=== PATIENT | female | born 1990 | race African-American/Black ===

== ENCOUNTER 2017-11-25 12:03 | Inpatient (IN) | payer BC ==
[2017-11-25] MEDS ORDERED: Calcium Carbonate 500 MG Tab.Chew PO PRN (13:20)
[2017-11-25] MEDS ORDERED: Sodium Chloride 0.9% 10 ML Syringe FLUSH PRN (13:20)
[2017-11-25] MEDS ORDERED: Ondansetron 4 MG/2 ML SDV IVPUSH PRN (13:20)
[2017-11-25] MEDS ORDERED: Lidocaine 1% 50 ML MDV INJECT ONE (13:20)
[2017-11-25] MEDS ORDERED: Oxytocin/Lactated Ringers 10 UNIT/1,000 ML BAG IV SCH (13:30)
--- NOTE | 2017-11-25 14:15 | PCM.LDHP ---
L&D History of Present Illness - General Date of Service: 11/25/17 Admit Problem/Dx: Patient Status Order with Admit Dx/Problem 11/25/17 13:20 Patient Status [ADT] Routine Admission Diagnosis/Problem Admission Diagnosis/Problem Source of Information: Patient History Limitations: Reports: No Limitations - History of Present Illness Introduction:: 27 yo G1 at 39 weeks 6 days gestation present to labor and delivery with contractions for 17 hours (starting at 2100 on 11/24/17). No Leakage of fluid. No vaginal bleeding. she reports good movement. she has had regular care with Dr. Giulia Mcmullen, Dr. Mcmullen will also be assuming care of infant. has been complicated by recurrent small for dates measurements. she has had repeat ultrasound evaluation. Her most recent ultrasound was a BPP on measuring in 40th percentile range for size, normal MATIAS and 8/8 BPP. Growth on this ultrasound was consistent with previous ultrasounds through this . Routine labs were within normal limits. O pos GTT normal GBS negative Location, : Reports: Abdomen Severity: Moderate Improves with: Reports: None Worsens with: Reports: None Associated Symptoms: Denies: vaginal bleeding, vaginal fluid - Related Data Allergies/Adverse Reactions: Allergies Allergy/AdvReac Type Severity Reaction Status Date / Time No Known Allergies Allergy Verified 11/25/17 12:19 Past Medical History - Past Surgical History Head Surgeries/Procedures: Reports: None Social & Family History - Tobacco Use Smoking Status *Q: Never Smoker - Living Situation & Occupation Living situation: Reports: , Other ( currently in [place]) Occupation: Employed H&P Review of Systems - Review of Systems: Review Of Systems: See Below General: Reports: No Symptoms HEENT: Reports: No Symptoms Pulmonary: Reports: No Symptoms Cardiovascular: Reports: No Symptoms Gastrointestinal: Reports: No Symptoms Genitourinary: Reports: No Symptoms Musculoskeletal: Reports: No Symptoms Skin: Reports: No Symptoms Psychiatric: Reports: No Symptoms Neurological: Reports: No Symptoms Hematologic/Lymphatic: Reports: No Symptoms Immunologic: Reports: No Symptoms L&D Exam - Exam Exam: See Below - Vital Signs Weight: 90.31 kg - OB Specific Contraction Intensity: Strong Movement: Active Heart Tones: Present Heart Tones per Min: 135 Heart Rate (FHR) Variability: Moderate (6-25 bmp) Presentation: Vertex Estimated Weight: 3250 grams - Miles Score Miles Score Cervix Position: Midposition Miles Score Consistency: Soft Miles Score Effacement: >80% Miles Score Dilation: 3-4 cm Miles Score Infant's Station: -1 ,0 Miles Score Total: 10 - Exam General: Alert, Oriented Genitourinary: Normal external exam Extremities: No Pedal Edema Skin: Warm, Dry, Intact Psychiatric: Alert - Patient Data Lab Results Last 24 hrs: Laboratory Results - last 24 hr 11/25/17 Range/Units 13:40 WBC 5.96 (3.98-10.04) K/mm3 RBC 4.87 (3.98-5.22) M/mm3 Hgb 13.0 (11.2-15.7) gm/L Hct 39.2 (34.1-44.9) % MCV 80.5 (79.4-94.8) fl MCH 26.7 (25.6-32.2) pg MCHC 33.2 (32.2-35.5) g/dl RDW Std Deviation 48.0 H (36.4-46.3) fL Plt Count 289 (182-369) K/mm3 MPV 10.6 (9.4-12.3) fl Neut % (Auto) 62.0 (34.0-71.1) % Lymph % (Auto) 26.3 (19.3-51.7) % [place] % (Auto) 10.7 (4.7-12.5) % Eos % (Auto) 0.5 L (0.7-5.8) Baso % (Auto) 0.2 (0.1-1.2) % Neut # (Auto) 3.69 (1.56-6.13) K/mm3 Lymph # (Auto) 1.57 (1.18-3.74) K/mm3 [place] # (Auto) 0.64 H (0.24-0.36) K/mm3 Eos # (Auto) 0.03 L (0.04-0.36) K/mm3 Baso # (Auto) 0.01 (0.01-0.08) K/mm3 Result Diagrams: 11/25/17 13:40 Problem List Initiated/Reviewed/Updated: Yes Orders Last 24hrs: Active Orders 24 hr Category Date Time Status Patient Status [ADT] Routine ADT 11/25/17 13:20 Active Activity as Tolerated [RC] PFP Care 11/25/17 13:20 Active Communication Order [RC] ASDIRECTED Care 11/25/17 13:20 Active Heart Tones [RC] ASDIRECTED Care 11/25/17 13:20 Active Notify Provider [RC] PFP Care 11/25/17 13:20 Active Notify Provider [RC] PRN Care 11/25/17 13:20 Active Peripheral IV Care [RC] . DIRECTED Care 11/25/17 13:20 Active Pump Management, Intrathecal [RC] ASDIRECTED Care 11/25/17 13:21 Active Urinary Catheter Assessment [RC] ASDIRECTED Care 11/25/17 13:20 Active Vital Signs [RC] PER UNIT ROUTINE Care 11/25/17 13:20 Active Regular Diet [DIET] Diet 11/25/17 Lunch Active RAPID PLASMA REAGIN,RPR [CHEM] Routine Lab 11/25/17 13:40 Received TYPE AND SCREEN [BBK] Stat Lab 11/25/17 13:40 Received Calcium Carbonate [Tums] Med 11/25/17 13:20 Active 1,000 mg PO Q2H PRN Lactated Ringers [Ringers, Lactated] 1,000 ml Med 11/25/17 13:30 Active IV ASDIRECTED Ondansetron [Zofran] Med 11/25/17 13:20 Active 4 mg IVPUSH Q4H PRN Oxytocin/Lactated Ringers [Pitocin in LR 10 Units/1,000 Med 11/25/17 13:30 Active ML] 10 unit in 1,000 ml IV .CONTINUOUS Sodium Chloride 0.9% [Saline Flush] Med 11/25/17 13:20 Active 10 ml FLUSH ASDIRECTED PRN Electronic Heart Tones Ext w TOCO [WOMSER] Oth 11/25/17 13:20 Ordered Routine Electronic Heart Tones Internal [WOMSER] Per Unit Oth 11/25/17 13:20 Ordered Routine Peripheral IV Insertion Adult [OM.PC] Routine Oth 11/25/17 13:20 Ordered Resuscitation Status Routine Resus Stat 11/25/17 13:20 Ordered Medication Orders Calcium Carbonate/Glycine (Tums) 1,000 mg PO Q2H PRN PRN Reason: Indigestion Lactated Ringer's (Ringers, Lactated) 1,000 mls @ 100 mls/hr IV ASDIRECTED BRYANT Oxytocin/Lactated Ringer's (Pitocin In Lr 10 Units/1,000 Ml) 10 unit in 1,000 mls @ 100 mls/hr IV .CONTINUOUS BRYANT; Protocol Ondansetron HCl (Zofran) 4 mg IVPUSH Q4H PRN PRN Reason: Nausea/Vomiting Sodium Chloride (Saline Flush) 10 ml FLUSH ASDIRECTED PRN PRN Reason: Keep Vein Open Assessment/Plan Comment:: 27 yo G1 presents with contractions in 1st stage of labor. Plan: Expectant management. Pt does not desire epidural at this time. GBS negative-no antibiotics needed.
[2017-11-25] MEDS: Lactated Ringers 1,000 ML IV SCH ×2 (17:35→21:44)
--- NOTE | 2017-11-25 18:30 | PCM.PNLD ---
Labor Progress Note - VS & Meds Vital Signs: Last Vital Signs Temp 36.8 C 11/25/17 13:20 Pulse 68 11/25/17 13:20 Resp 16 11/25/17 13:20 BP 126/85 11/25/17 13:20 Pulse Ox Active Medications: Current Medications Calcium Carbonate/Glycine (Tums) 1,000 mg PO Q2H PRN PRN Reason: Indigestion Lactated Ringer's (Ringers, Lactated) 1,000 mls @ 100 mls/hr IV ASDIRECTED BRYANT Oxytocin/Lactated Ringer's (Pitocin In Lr 10 Units/1,000 Ml) 10 unit in 1,000 mls @ 100 mls/hr IV .CONTINUOUS BRYANT; Protocol Ondansetron HCl (Zofran) 4 mg IVPUSH Q4H PRN PRN Reason: Nausea/Vomiting Sodium Chloride (Saline Flush) 10 ml FLUSH ASDIRECTED PRN PRN Reason: Keep Vein Open Discontinued Medications Lidocaine HCl (Xylocaine 1%) 50 ml INJECT ONETIME ONE Stop: 11/25/17 13:21 - Uterine Contractions Uterine Monitoring Mode: External [place] Contraction Frequency (min): 3 to 5 Contraction Duration (sec): 60-120 Contraction Intensity: Moderate Uterine Resting Tone: Soft - Monitoring Monitor Mode: Spiral Electrode Heart Rate (FHR) Baseline: 130 Heart Rate (FHR) Variability: Moderate (6-25 bmp) Accelerations: Absent Decelerations: Prolonged (>2x10 min) Strip Review: Category II - Vaginal Exam Dilation (cm): 4 Effacement (Percent): 90 Station: 0 Cervical Position: Midposition Sterile Vaginal Exam Performed By: Giulia Mcmullen (AROM done at time of Scalp lead placement) - Labor Progress (Free Text) Labor Progress: Patient tolerating her contractions when I came to see her at about 1730. She was up on the birthing ball and FHR was reactive, moderate variability and only an occasional early decel noted. I had her move to the bed to examine her and cervix was 4 cm, 90%, Vertex with station -1 to 0. FHR decelerated shortly after my exam down to about 65 and we applied oxygen, started IV fluid bolus and rolled her to her left side. FHR was still low, so I placed an internal scalp lead and did an AROM and there was finally slow recovery to 90 and then 100-110. There was very little fluid that drained but there appeared to be some meconium. Finally after about 15 minutes, baseline was 110-120 and by 25 minutes after the deceleration, FHR was back to the previous baseline of 130 with moderate variability. We did have her try standing and then sit back on the birthing ball,and baby tolerated that. Contractions seems to be getting stronger now again and about every 3 minutes. I did notify the OB special education tutor, Dr. Portillo, in case baby gets into distress and does not tolerate labor and we have to go to section. She has been type and screened.
[2017-11-26] MEDS ORDERED: diphenhydrAMINE 50 MG/ML SDV IVPUSH PRN (02:10)
[2017-11-26] MEDS ORDERED: fentaNYL 100 MCG/2 ML SDV EPIDUR PRN (02:10)
[2017-11-26] MEDS ORDERED: ePHEDrine 50 MG/ML SDV IVPUSH PRN (02:10)
[2017-11-26] MEDS ORDERED: fentaNYL 100 MCG/2 ML SDV ONE (02:14)
[2017-11-26] MEDS ORDERED: Bupivacaine/fentaNYL/NS 100 ML Bag EPIDUR SCH (02:15)
[2017-11-26] MEDS: Lactated Ringers 1,000 ML IV SCH ×2 (02:35→04:05)
--- NOTE | 2017-11-26 02:41 | PCM.PREANE ---
Preanesthetic Assessment - Anesthesia/Transfusion/Family Hx Anesthesia History: No Prior Anesthesia Family History of Anesthesia Reaction: No Transfusion History: No Prior Transfusion(s) - Review of Systems General: No Symptoms Pulmonary: No Symptoms Cardiovascular: No Symptoms Gastrointestinal: No Symptoms Neurological: No Symptoms Other: Reports: None - Physical Assessment Pulse: 89 O2 Sat by Pulse Oximetry: 98 Respiratory Rate: 16 Blood Pressure: 142/76 Temperature: 36.3 C Vital Signs: Last Vital Signs Temp 36.8 C 11/25/17 13:20 Pulse 68 11/25/17 13:20 Resp 16 11/25/17 13:20 BP 126/85 11/25/17 13:20 Pulse Ox Height: 1.78 m Weight: 90.31 kg ASA Class: 2 Mental Status: Alert & Oriented x3 Airway Class: Mallampati = 1 Dentition: Reports: Normal Dentition Thyro-Mental Finger Breadths: 3 Mouth Opening Finger Breadths: 3 ROM/Head Extension: Full Lungs: Clear to Auscultation, Normal Respiratory Effort Cardiovascular: Regular Rate, Regular Rhythm, No Murmurs - Lab Values: Laboratory Last Values WBC 5.96 K/mm3 (3.98-10.04) 11/25/17 13:40 RBC 4.87 M/mm3 (3.98-5.22) 11/25/17 13:40 Hgb 13.0 gm/L (11.2-15.7) 11/25/17 13:40 Hct 39.2 % (34.1-44.9) 11/25/17 13:40 MCV 80.5 fl (79.4-94.8) 11/25/17 13:40 MCH 26.7 pg (25.6-32.2) 11/25/17 13:40 MCHC 33.2 g/dl (32.2-35.5) 11/25/17 13:40 RDW Std Deviation 48.0 fL (36.4-46.3) H 11/25/17 13:40 Plt Count 289 K/mm3 (182-369) 11/25/17 13:40 MPV 10.6 fl (9.4-12.3) 11/25/17 13:40 Neut % (Auto) 62.0 % (34.0-71.1) 11/25/17 13:40 Lymph % (Auto) 26.3 % (19.3-51.7) 11/25/17 13:40 [place] % (Auto) 10.7 % (4.7-12.5) 11/25/17 13:40 Eos % (Auto) 0.5 (0.7-5.8) L 11/25/17 13:40 Baso % (Auto) 0.2 % (0.1-1.2) 11/25/17 13:40 Neut # (Auto) 3.69 K/mm3 (1.56-6.13) 11/25/17 13:40 Lymph # (Auto) 1.57 K/mm3 (1.18-3.74) 11/25/17 13:40 [place] # (Auto) 0.64 K/mm3 (0.24-0.36) H 11/25/17 13:40 Eos # (Auto) 0.03 K/mm3 (0.04-0.36) L 11/25/17 13:40 Baso # (Auto) 0.01 K/mm3 (0.01-0.08) 11/25/17 13:40 Blood Type O POSITIVE 11/25/17 13:40 Gel Antibody Screen Negative 11/25/17 13:40 - Allergies Allergies/Adverse Reactions: Allergies Allergy/AdvReac Type Severity Reaction Status Date / Time No Known Allergies Allergy Verified 11/25/17 12:19 - Anesthesia Plan Pre-Op Medication Ordered: None - Acknowledgements Anesthesia Type Planned: Epidural PreAnesthesia Questionnaire - Past Health History Medical/Surgical History: Denies Medical/Surgical History Gastrointestinal History: Reports: GERD 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: - Past Surgical History Head Surgeries/Procedures: Reports: None - SUBSTANCE USE Smoking Status *Q: Never Smoker Second Hand Smoke Exposure: No Recreational Drug Use History: No - CURRENT (IN HOUSE) MEDS Current Meds: Current Medications Calcium Carbonate/Glycine (Tums) 1,000 mg PO Q2H PRN PRN Reason: Indigestion Diphenhydramine HCl (Benadryl) 25 mg IVPUSH Q6H PRN PRN Reason: Itching Ephedrine Sulfate (Ephedrine Sulfate) 5 mg IVPUSH ASDIRECTED PRN PRN Reason: HYPOTENTSION Fentanyl (Sublimaze) 100 mcg EPIDUR Q3H PRN PRN Reason: Pain Last Admin: 11/26/17 02:38 Dose: 100 mcg Fentanyl/Bupivacaine HCl (Fentanyl/Bupivacaine/Ns 2 Mcg-0.125% 100 Ml) 100 ml EPIDUR ASDIRECTED BRYANT Last Admin: 11/26/17 02:39 Dose: 100 ml Lactated Ringer's (Ringers, Lactated) 1,000 mls @ 100 mls/hr IV ASDIRECTED BRYANT Last Admin: 11/25/17 21:44 Dose: 100 mls/hr Oxytocin/Lactated Ringer's (Pitocin In Lr 10 Units/1,000 Ml) 10 unit in 1,000 mls @ 100 mls/hr IV .CONTINUOUS BRYANT; Protocol Ondansetron HCl (Zofran) 4 mg IVPUSH Q4H PRN PRN Reason: Nausea/Vomiting Sodium Chloride (Saline Flush) 10 ml FLUSH ASDIRECTED PRN PRN Reason: Keep Vein Open Discontinued Medications Fentanyl (Sublimaze) Confirm Administered Dose 100 mcg .ROUTE .[employer]MED ONE Stop: 11/26/17 02:15 Lidocaine HCl (Xylocaine 1%) 50 ml INJECT ONETIME ONE Stop: 11/25/17 13:21
[2017-11-26] MEDS ORDERED: Oxytocin/Lactated Ringers 10 UNIT/1,000 ML BAG IV SCH (05:00)
--- NOTE | 2017-11-26 07:24 | PCM.PNLD ---
Labor Progress Note - VS & Meds Vital Signs: Last Vital Signs Temp 36.3 C 11/26/17 02:40 Pulse 89 11/26/17 02:40 Resp 16 11/26/17 02:40 BP 142/76 H 11/26/17 02:40 Pulse Ox 98 11/26/17 02:40 Active Medications: Current Medications Calcium Carbonate/Glycine (Tums) 1,000 mg PO Q2H PRN PRN Reason: Indigestion Diphenhydramine HCl (Benadryl) 25 mg IVPUSH Q6H PRN PRN Reason: Itching Ephedrine Sulfate (Ephedrine Sulfate) 5 mg IVPUSH ASDIRECTED PRN PRN Reason: HYPOTENTSION Fentanyl (Sublimaze) 100 mcg EPIDUR Q3H PRN PRN Reason: Pain Last Admin: 11/26/17 02:38 Dose: 100 mcg Fentanyl/Bupivacaine HCl (Fentanyl/Bupivacaine/Ns 2 Mcg-0.125% 100 Ml) 100 ml EPIDUR ASDIRECTED BRYANT Last Admin: 11/26/17 02:39 Dose: 100 ml Lactated Ringer's (Ringers, Lactated) 1,000 mls @ 100 mls/hr IV ASDIRECTED BRYANT Last Admin: 11/26/17 04:05 Dose: 100 mls/hr Oxytocin/Lactated Ringer's (Pitocin In Lr 10 Units/1,000 Ml) 10 unit in 1,000 mls @ 100 mls/hr IV .CONTINUOUS BRYANT; Protocol Oxytocin/Lactated Ringer's (Pitocin In Lr 10 Units/1,000 Ml) 10 unit in 1,000 mls @ 12 mls/hr IV TITRATE BRYANT; Protocol Last Infusion: 11/26/17 06:30 Dose: 8 munits/min, 48 mls/hr Ondansetron HCl (Zofran) 4 mg IVPUSH Q4H PRN PRN Reason: Nausea/Vomiting Last Admin: 11/26/17 03:24 Dose: 4 mg Sodium Chloride (Saline Flush) 10 ml FLUSH ASDIRECTED PRN PRN Reason: Keep Vein Open Discontinued Medications Fentanyl (Sublimaze) Confirm Administered Dose 100 mcg .ROUTE .STK-MED ONE Stop: 11/26/17 02:15 Last Admin: 11/26/17 03:17 Dose: Not Given Lidocaine HCl (Xylocaine 1%) 50 ml INJECT ONETIME ONE Stop: 11/25/17 13:21 - Uterine Contractions Uterine Monitoring Mode: External [place] Contraction Frequency (min): 2 to 3 Contraction Duration (sec): 60-120 Contraction Intensity: Moderate to Strong Uterine Resting Tone: Soft - Monitoring Monitor Mode: Spiral Electrode Heart Rate (FHR) Baseline: 130 Heart Rate (FHR) Variability: Moderate (6-25 bmp) Accelerations: Present, 15x15 Decelerations: Variable, Prolonged (>2x10 min) Strip Review: Category II - Vaginal Exam Dilation (cm): 7 Effacement (Percent): 100 Station: 0 Cervical Position: Anterior Sterile Vaginal Exam Performed By: Giulia Mcmullen (AROM done at time of Scalp lead placement) - Labor Progress (Free Text) Labor Progress: FHR has been stable over night with moderate variability, accelerations and an occasional variable deceleration. No further prolonged decelerations and no late decelerations. She did get an epidural about 2:45 since she was so tired and just not able to tolerate the contractions any more. Contractions spaced out to about every 5 minutes and really no labor progress, so pitocin was started at 0500 to augment labor. Currently at 8 mu/min pitocin and contractions are every 2 to 3 minutes. Baby is tolerating the contractions. Expectant management, expect vaginal delivery.
[2017-11-26] MEDS ORDERED: Calcium Gluconate 10% 1 GM/10 ML SDV IV PRN (08:33)
[2017-11-26] MEDS ORDERED: Lidocaine 1% 50 ML MDV ONE (09:33)
[2017-11-26] MEDS ORDERED: Acetaminophen/Codeine 300-30 MG Tab PO PRN (10:44)
[2017-11-26] MEDS ORDERED: Simethicone 80 MG Tab.Chew PO PRN (10:44)
[2017-11-26] MEDS ORDERED: Aluminum Hydroxide/Magnesium Hydroxide/Simethicone Susp 30 ML Cup PO PRN (10:44)
--- NOTE | 2017-11-26 11:24 | PCM.DEL ---
L & D Note - General Info Date of Service: 11/26/17 Mother's Due Date: 11/26/17 - Delivery Note Labor: Spontaneous, Augmented by ARM, Augmented by Oxytocin Delivery Outcome: Livebirth Delivery Method: Spontaneous Vaginal Delivery-Single Infant Delivery Mode: Spontaneous Presentation: Right Occiput Anterior (KENROY) Nuchal Cord: None Prep: Povidone-Iodine (Betadine Anesthesia Type: Epidural Amniotic Fluid Description: Meconium Stained Episiotomy Type: Right Mediolateral Laceration: None Suture type: Vicryl Suture size: 3-0 Placenta: Intact, Spontaneous Cord: 3 Vessels Estimated Blood Loss: 500 Resuscitation Needed: No : Suctioned, Bulb Syringe (Stomach suctioned due to meconium, 2 ml obtained), Stimulated, Warmed, Warmer Used Provider: Mynor Juarez Score 1 min: 8 Score 5 min: 9 Second Stage Interventions: Reports: Pushing Effectively, Pushing, Feet in Foot Rests Delivery Comments (Free Text/Narrative):: This 27 year old presents at 40 weeks gestation by ultrasound with an EDC of November 26, 2017. She was complaining of regular uterine contractions that had started at 9 PM on November 24. Her membranes were intact. course was complicated by small for gestational age baby and nausea of . lab data includes blood type O+ with a negative Ab screen, Rubella Immune, RPR NR, Hep BsAg neg, HIV NR and Group B strep test negative. She presented at approximately 1300 hours on November 25 with contractions q 5 minutes. At that time, her cervix was 3 cm. FHR was reactive and reassuring. At 1730 on November 25, artificial rupture of membranes was performed with a return of small amount of meconium-stained fluid. At that time, her cervix was 4 cm and the vertex was at a -1-0 station. There was a prolonged heart rate deceleration after I had checked her when she was laying on her back. We changed her position to lying on her side, started an IV LR bolus, and applied oxygen. I did place an internal scalp lead at that time and did the artificial rupture of membranes. There was slow recovery of the heart rate back to a baseline of 90 to 100 and then over the next half an hour recovered back to the previously normal baseline of 130 bpm. Since that time, heart rate has been reactive with moderate variability, occasional variable decelerations, and no further prolonged decelerations. She received an epidural for analgesia at about 02 45 hours and had good relief. Her contractions spaced out and were only about every 5 minutes apart. Pitocin augmentation was started at 0500 due to very little progress of labor. Baby tolerated the Pitocin augmentation. She progressed to complete by 08 50 hours and was allowed to labor down for a few contractions, and then start pushing. Total duration of the first stage of labor was 36 hours There was adequate progress with pushing and FHR remained reassuring. The head was delivered spontaneously in the right occiput anterior position over right mediolateral episiotomy. There was thick meconium noted at delivery. Mouth and nose were suctioned with the bulb suction on the perineum. There was no nuchal cord. The anterior shoulder delivered easily and the posterior shoulder followed. The remainder of the was easily delivered and the mouth and nose were again suctioned. Time of delivery was 09 44. It was a baby girl and noted to spontaneously cry and was moving all four extremities. The cord was clamped and cut. Cord was noted to have 3 vessels. Baby was handed over to the pediatric nurses and Dr. Juarez to provide any necessary resuscitation due to the meconium. Baby was dried, stimulated and the stomach was suctioned. Baby did well and had Apgars of 8 and 9 at one and 5 minutes respectively. Once the baby was stable she was placed skin to skin on mother's chest . Cord blood was obtained. Birthweight was 6 lbs. 11 oz., 3030 g and the total duration of the second stage of labor was 54 minutes. Pitocin IV bolus with 10 units in 1000 ml was started after delivery of the baby. Gentle traction was placed on the cord and the placenta delivered spontaneously at 09 50. Total duration of the third stage of labor was 6 minutes. Placenta was intact. Uterine tone was firm after delivery of the placenta and uterine massage. There is no extension to the episiotomy and episiotomy was repaired in the usual manner using 3-0 vicryl. Mom and baby were left in stable condition and will be admitted to unit and nursery for routine care. Baby was able to latch and nurse at 1005. - General Info Date of Service: 11/26/17 Admission Dx/Problem (Free Text): Patient Status Order with Admit Dx/Problem 11/25/17 13:20 Patient Status [ADT] Routine Admission Diagnosis/Problem Admission Diagnosis/Problem Functional Status: Reports: Pain Controlled - Review of Systems General: Reports: Fatigue HEENT: Reports: No Symptoms Pulmonary: Reports: No Symptoms Cardiovascular: Reports: No Symptoms Gastrointestinal: Reports: No Symptoms Genitourinary: Reports: No Symptoms Musculoskeletal: Reports: No Symptoms Skin: Reports: No Symptoms Neurological: Reports: Headache Psychiatric: Reports: No Symptoms - Patient Data Vitals - Most Recent: Last Vital Signs Temp 36.3 C 11/26/17 02:40 Pulse 89 11/26/17 02:40 Resp 16 11/26/17 02:40 BP 142/76 H 11/26/17 02:40 Pulse Ox 98 11/26/17 02:40 Weight - Most Recent: 90.31 kg I&O - Last 24 Hours: Intake & Output 11/25/17 11/26/17 11/26/17 22:59 06:59 14:59 Intake Total 0 Balance 0 Lab Results Last 24 Hours: Laboratory Results - last 24 hr 11/25/17 11/25/17 11/25/17 Range/Units 13:40 13:40 13:40 WBC 5.96 (3.98-10.04) K/mm3 RBC 4.87 (3.98-5.22) M/mm3 Hgb 13.0 (11.2-15.7) gm/L Hct 39.2 (34.1-44.9) % MCV 80.5 (79.4-94.8) fl MCH 26.7 (25.6-32.2) pg MCHC 33.2 (32.2-35.5) g/dl RDW Std Deviation 48.0 H (36.4-46.3) fL Plt Count 289 (182-369) K/mm3 MPV 10.6 (9.4-12.3) fl Neut % (Auto) 62.0 (34.0-71.1) % Lymph % (Auto) 26.3 (19.3-51.7) % Jenkins % (Auto) 10.7 (4.7-12.5) % Eos % (Auto) 0.5 L (0.7-5.8) Baso % (Auto) 0.2 (0.1-1.2) % Neut # (Auto) 3.69 (1.56-6.13) K/mm3 Lymph # (Auto) 1.57 (1.18-3.74) K/mm3 Jenkins # (Auto) 0.64 H (0.24-0.36) K/mm3 Eos # (Auto) 0.03 L (0.04-0.36) K/mm3 Baso # (Auto) 0.01 (0.01-0.08) K/mm3 BUN 8 (7-18) mg/dL Creatinine 0.6 (0.55-1.02) mg/dL Est Cr Clr Drug Dosing 155.00 mL/min Estimated GFR (MDRD) > 60 (>60) mL/min Uric Acid 4.3 (2.6-6.0) mg/dL AST 28 (15-37) U/L ALT 37 (14-59) U/L Lactate Dehydrogenase 534 H (81-234) U/L Urine Color (Yellow) Urine Appearance (Clear) Urine pH (5.0-8.0) Ur Specific [place] (1.005-1.030) Urine Protein (Negative) Urine Glucose (UA) (Negative) Urine Ketones (Negative) Urine Occult Blood (Negative) Urine Nitrite (Negative) Urine Bilirubin (Negative) Urine Urobilinogen (0.2-1.0) Ur Leukocyte Esterase (Negative) Blood Type O POSITIVE Gel Antibody Screen Negative 11/26/17 Range/Units 08:45 WBC (3.98-10.04) K/mm3 RBC (3.98-5.22) M/mm3 Hgb (11.2-15.7) gm/L Hct (34.1-44.9) % MCV (79.4-94.8) fl MCH (25.6-32.2) pg MCHC (32.2-35.5) g/dl RDW Std Deviation (36.4-46.3) fL Plt Count (182-369) K/mm3 MPV (9.4-12.3) fl Neut % (Auto) (34.0-71.1) % Lymph % (Auto) (19.3-51.7) % Jenkins % (Auto) (4.7-12.5) % Eos % (Auto) (0.7-5.8) Baso % (Auto) (0.1-1.2) % Neut # (Auto) (1.56-6.13) K/mm3 Lymph # (Auto) (1.18-3.74) K/mm3 Jenkins # (Auto) (0.24-0.36) K/mm3 Eos # (Auto) (0.04-0.36) K/mm3 Baso # (Auto) (0.01-0.08) K/mm3 BUN (7-18) mg/dL Creatinine (0.55-1.02) mg/dL Est Cr Clr Drug Dosing mL/min Estimated GFR (MDRD) (>60) mL/min Uric Acid (2.6-6.0) mg/dL AST (15-37) U/L ALT (14-59) U/L Lactate Dehydrogenase (81-234) U/L Urine Color [place] H (Yellow) Urine Appearance Slt cloudy H (Clear) Urine pH 7.0 (5.0-8.0) Ur Specific [place] 1.015 (1.005-1.030) Urine Protein 2+ H (Negative) Urine Glucose (UA) Negative (Negative) Urine Ketones Negative (Negative) Urine Occult Blood 3+ H (Negative) Urine Nitrite Negative (Negative) Urine Bilirubin Negative (Negative) Urine Urobilinogen 0.2 (0.2-1.0) Ur Leukocyte Esterase 1+ H (Negative) Blood Type Gel Antibody Screen Med Orders - Current: Current Medications Acetaminophen/Codeine Phosphate (Tylenol With Codeine No.3 300mg/30mg) 2 tab PO Q4H PRN PRN Reason: Pain (moderate 4-6) Al Hydroxide/Mg Hydroxide (Mag-Al Plus) 30 ml PO Q8H PRN PRN Reason: Heartburn Calcium Carbonate/Glycine (Tums) 1,000 mg PO Q2H PRN PRN Reason: Indigestion Calcium Gluconate (Calcium Gluconate) 1 gm IV ASDIRECTED PRN PRN Reason: respiratory distress Diphenhydramine HCl (Benadryl) 25 mg IVPUSH Q6H PRN PRN Reason: Itching Ephedrine Sulfate (Ephedrine Sulfate) 5 mg IVPUSH ASDIRECTED PRN PRN Reason: HYPOTENTSION Fentanyl (Sublimaze) 100 mcg EPIDUR Q3H PRN PRN Reason: Pain Last Admin: 11/26/17 02:38 Dose: 100 mcg Fentanyl/Bupivacaine HCl (Fentanyl/Bupivacaine/Ns 2 Mcg-0.125% 100 Ml) 100 ml EPIDUR ASDIRECTED BRYANT Last Admin: 11/26/17 02:39 Dose: 100 ml Lactated Ringer's (Ringers, Lactated) 1,000 mls @ 100 mls/hr IV ASDIRECTED BRYANT Last Admin: 11/26/17 04:05 Dose: 100 mls/hr Oxytocin/Lactated Ringer's (Pitocin In Lr 10 Units/1,000 Ml) 10 unit in 1,000 mls @ 100 mls/hr IV .CONTINUOUS BRYANT; Protocol Oxytocin/Lactated Ringer's (Pitocin In Lr 10 Units/1,000 Ml) 10 unit in 1,000 mls @ 12 mls/hr IV TITRATE BRYANT; Protocol Last Infusion: 11/26/17 06:30 Dose: 8 munits/min, 48 mls/hr Ibuprofen (Motrin) 600 mg PO Q6H PRN PRN Reason: Mild pain or fever Ondansetron HCl (Zofran) 4 mg IVPUSH Q4H PRN PRN Reason: Nausea/Vomiting Last Admin: 11/26/17 03:24 Dose: 4 mg Senna (Senna) 1 mg PO BEDTIME BRYANT Simethicone (Simethicone) 80 mg PO Q4H PRN PRN Reason: Gas Sodium Chloride (Saline Flush) 10 ml FLUSH ASDIRECTED PRN PRN Reason: Keep Vein Open Discontinued Medications Fentanyl (Sublimaze) Confirm Administered Dose 100 mcg .ROUTE .STK-MED ONE Stop: 11/26/17 02:15 Last Admin: 11/26/17 03:17 Dose: Not Given Lidocaine HCl (Xylocaine 1%) 50 ml INJECT ONETIME ONE Stop: 11/25/17 13:21 Lidocaine HCl (Xylocaine 1%) Confirm Administered Dose 50 ml .ROUTE .STK-MED ONE Stop: 11/26/17 09:34 Last Admin: 11/26/17 10:13 Dose: 50 ml - Exam General: Alert, Oriented HEENT: Pupils Equal, Pupils Reactive Neck: Supple Lungs: Normal Respiratory Effort Cardiovascular: Regular Rate GI/Abdominal Exam: Normal Bowel Sounds (Female) Exam: Normal External Exam, Other (Fundus firm at umbilicus after delivery and repair of episiotomy) Back Exam: Normal Inspection Extremities: Normal Inspection, No Pedal Edema Skin: Warm, Dry, Intact Neurological: No New Focal Deficit Psy/Mental Status: Alert, Normal Affect, Normal Mood - Problem List & Annotations (1) (spontaneous vaginal delivery) SNOMED Code(s): 73906349 Code(s): O80 - ENCOUNTER FOR FULL-TERM UNCOMPLICATED DELIVERY Status: Acute Current Visit: Yes (2) () SNOMED Code(s): 101255680 Code(s): Z78.9 - OTHER SPECIFIED HEALTH STATUS Status: Acute Current Visit: Yes - Problem List Review Problem List Initiated/Reviewed/Updated: Yes - My Orders Last 24 Hours: My Active Orders 11/26/17 05:00 Oxytocin/Lactated Ringers [Pitocin in LR 10 Units/1,000 ML] 10 unit in 1,000 ml IV TITRATE 11/26/17 08:33 Bedrest [RC] ASDIRECTED Communication Order [RC] ASDIRECTED Notify Provider [RC] ASDIRECTED Oxygen Therapy [RC] PRN Vital Signs [RC] ASDIRECTED Calcium Gluconate 1 gm IV ASDIRECTED PRN 11/26/17 08:34 Notify Provider Status Change [RC] ASDIRECTED Notify Provider Vital Signs [RC] ASDIRECTED PIH Panel [OM.PC] Stat 11/26/17 08:35 Equipment to Bedside [RC] PRN CBC WITH AUTO DIFF [HEME] Stat 11/26/17 08:45 Blood Pressure [OM.PC] ASDIRECTED Deep Tendon Reflexes [WOMSER] ASDIRECTED 11/26/17 10:39 Patient Status Manage Transfer [TRANSFER] Routine 11/26/17 10:44 Patient Status [ADT] Routine Activity as Tolerated [RC] PER UNIT ROUTINE Vital Signs [RC] ASDIRECTED Acetaminophen/Codeine [Tylenol with Codeine No.3 300MG/30MG] 2 tab PO Q4H PRN Alum Hydrox/Mag Hydrox/Simeth [Mag-Al Plus] 30 ml PO Q8H PRN Ibuprofen [Motrin] 600 mg PO Q6H PRN Simethicone 80 mg PO Q4H PRN Assess Lochia [WOMSER] Per Unit Routine Assess Uterine Involution [WOMSER] Per Unit Routine Breast Pump [WOMSER] Per Unit Routine Medication Administration Instruction [OM.PC] Routine Perineal Care [OM.PC] Per Unit Routine Sitz Bath [OM.PC] Per Unit Routine 11/26/17 10:45 Heat Therapy [OM.PC] PRN 11/26/17 21:00 Sennosides [Senna] 1 mg PO BEDTIME 11/27/17 05:11 COMPREHENSIVE METABOLIC PN,CMP [CHEM] AM 11/27/17 07:00 CBC W/O DIFF,HEMOGRAM [HEME] Routine 11/27/17 10:45 Heat Therapy [OM.PC] PRN - Assessment Assessment:: 27 yo G1 now P1 female at 40 weeks gestation with with a right mediolateral episiotomy due to tight perineum. Both she and baby are stable and rooming in. Baby was placed skin to skin after initial resuscitation and was able to latch and nurse starting at 1005. - Plan Plan:: 27 yo G1 presents with contractions in 1st stage of labor. Plan: Expectant management. Pt does not desire epidural at this time. GBS negative-no antibiotics needed Patient has had elevated bp during labor, even after epidural was placed. Preeclampsia labs done and LDH is elevated and 2+ protein in the urine, otherwise normal. Will monitor bp closely and repeat labs in the am. Will continue to monitor for other signs of preeclampsia. She is planning to breast feed. Will need lots of education and support.
[2017-11-26] MEDS: Ibuprofen 600 MG Tab PO PRN (12:37)
[2017-11-26] MEDS ORDERED: Bupivacaine 0.25% 10 ML SDV ONE (22:00)
[2017-11-27] MEDS: Sennosides 8.6 MG Tab PO SCH ×2 (01:48→21:54)
[2017-11-27] MEDS: Ibuprofen 600 MG Tab PO PRN ×2 (04:20→21:36)
--- NOTE | 2017-11-27 07:32 | PCM48HPAN ---
Post Anesthesia Note - EVALUATION WITHIN 48HRS OF ANESTHETIC Vital Signs in Normal Range: Yes Patient Participated in Evaluation: Yes Respiratory Function Stable: Yes Airway Patent: Yes Cardiovascular Function Stable: Yes Hydration Status Stable: Yes Pain Control Satisfactory: Yes Nausea and Vomiting Control Satisfactory: Yes Mental Status Recovered: Yes Pulse Rate: 98 Resp Rate: 14 Temperature: 37.3 C Blood Pressure: 127/80 - COMMENTS/OBSERVATIONS Free Text/Narrative:: NO ANESTHESIA COMPLICATIONS NOTED
--- NOTE | 2017-11-27 07:39 | PCM48HPAN ---
Post Anesthesia Note - EVALUATION WITHIN 48HRS OF ANESTHETIC Vital Signs in Normal Range: Yes Patient Participated in Evaluation: Yes Respiratory Function Stable: Yes Airway Patent: Yes Cardiovascular Function Stable: Yes Hydration Status Stable: Yes Pain Control Satisfactory: Yes Nausea and Vomiting Control Satisfactory: Yes Mental Status Recovered: Yes Pulse Rate: 98 Resp Rate: 14 Temperature: 99.1 F Blood Pressure: 127/80
--- NOTE | 2017-11-27 19:45 | PCM.PNPP ---
- General Info Date of Service: 11/27/17 Admission Dx/Problem (Free Text): Patient Status Order with Admit Dx/Problem 11/25/17 13:20 Patient Status [ADT] Routine Admission Diagnosis/Problem Admission Diagnosis/Problem Subjective Update: Patient has been doing well, using ibuprofen and tylenol with codeine for pain control. She has had a big appetite with no nausea. She has been and denies nipple pain. She has noticed some uterine cramping while nursing. Bleeding has been moderate with no clots. She has been ambulating well. She denies any dizziness. BP readings have been stable today. H/H today have dropped to 13.0 and 30.2. Platelets are normal. RPR test was negative. Functional Status: Reports: Pain Controlled, Tolerating Diet, Ambulating, Urinating - Review of Systems General: Reports: No Symptoms HEENT: Reports: No Symptoms Pulmonary: Reports: No Symptoms Cardiovascular: Reports: No Symptoms Gastrointestinal: Reports: No Symptoms Genitourinary: Reports: No Symptoms Musculoskeletal: Reports: No Symptoms Skin: Reports: No Symptoms Neurological: Reports: No Symptoms Psychiatric: Reports: No Symptoms - General Info Date of Service: 11/27/17 - Patient Data Vital Signs - Most Recent: Last Vital Signs Temp 37.1 C 11/27/17 15:35 Pulse 93 11/27/17 15:35 Resp 18 11/27/17 15:35 BP 131/73 11/27/17 15:35 Pulse Ox 100 11/27/17 15:35 Weight - Most Recent: 90.31 kg I&O - Last 24 Hours: Intake & Output 11/27/17 11/27/17 11/27/17 06:59 14:59 22:59 Intake Total 540 Balance 540 Lab Results - Last 24 Hours: Laboratory Results - last 24 hr 11/27/17 11/27/17 Range/Units 05:48 05:48 WBC 10.93 H (3.98-10.04) K/mm3 RBC 3.68 L (3.98-5.22) M/mm3 Hgb 10.1 L (11.2-15.7) gm/L Hct 30.2 L (34.1-44.9) % MCV 82.1 (79.4-94.8) fl MCH 27.4 (25.6-32.2) pg MCHC 33.4 (32.2-35.5) g/dl RDW Std Deviation 49.0 H (36.4-46.3) fL Plt Count 246 (182-369) K/mm3 MPV 10.5 (9.4-12.3) fl Sodium 135 L (136-145) mEq/L Potassium 4.1 (3.5-5.1) mEq/L Chloride 104 (98-107) mEq/L Carbon Dioxide 21 (21-32) mEq/L Anion Gap 14.1 (5-15) BUN 12 (7-18) mg/dL Creatinine 0.7 (0.55-1.02) mg/dL Est Cr Clr Drug Dosing 132.85 mL/min Estimated GFR (MDRD) > 60 (>60) mL/min BUN/Creatinine Ratio 17.1 (14-18) Glucose 98 (74-106) mg/dL Calcium 8.8 (8.5-10.1) mg/dL Total Bilirubin 0.2 (0.2-1.0) mg/dL AST 34 (15-37) U/L ALT 31 (14-59) U/L Alkaline Phosphatase 128 H (46-116) U/L Total Protein 5.9 L (6.4-8.2) g/dl Albumin 2.1 L (3.4-5.0) g/dl Globulin 3.8 gm/dL Albumin/Globulin Ratio 0.6 L (1-2) Med Orders - Current: Current Medications Acetaminophen/Codeine Phosphate (Tylenol With Codeine No.3 300mg/30mg) 2 tab PO Q4H PRN PRN Reason: Pain (moderate 4-6) Al Hydroxide/Mg Hydroxide (Mag-Al Plus) 30 ml PO Q8H PRN PRN Reason: Heartburn Diphenhydramine HCl (Benadryl) 25 mg IVPUSH Q6H PRN PRN Reason: Itching Ibuprofen (Motrin) 600 mg PO Q6H PRN PRN Reason: Mild pain or fever Last Admin: 11/27/17 04:20 Dose: 600 mg Senna (Senna) 8.6 mg PO BEDTIME BRYANT Last Admin: 11/27/17 01:48 Dose: Not Given Simethicone (Simethicone) 80 mg PO Q4H PRN PRN Reason: Gas Discontinued Medications Bupivacaine HCl (Sensorcaine-Mpf 0.25%) 10 ml .ROUTE .STK-MED ONE Stop: 11/26/17 22:01 Calcium Carbonate/Glycine (Tums) 1,000 mg PO Q2H PRN PRN Reason: Indigestion Calcium Gluconate (Calcium Gluconate) 1 gm IV ASDIRECTED PRN PRN Reason: respiratory distress Ephedrine Sulfate (Ephedrine Sulfate) 5 mg IVPUSH ASDIRECTED PRN PRN Reason: HYPOTENTSION Fentanyl (Sublimaze) 100 mcg EPIDUR Q3H PRN PRN Reason: Pain Last Admin: 11/26/17 02:38 Dose: 100 mcg Fentanyl (Sublimaze) Confirm Administered Dose 100 mcg .ROUTE .[employer]-MED ONE Stop: 11/26/17 02:15 Last Admin: 11/26/17 03:17 Dose: Not Given Fentanyl/Bupivacaine HCl (Fentanyl/Bupivacaine/Ns 2 Mcg-0.125% 100 Ml) 100 ml EPIDUR ASDIRECTED BRYANT Last Admin: 11/26/17 02:39 Dose: 100 ml Lactated Ringer's (Ringers, Lactated) 1,000 mls @ 100 mls/hr IV ASDIRECTED BRYANT Last Admin: 11/26/17 04:05 Dose: 100 mls/hr Oxytocin/Lactated Ringer's (Pitocin In Lr 10 Units/1,000 Ml) 10 unit in 1,000 mls @ 100 mls/hr IV .CONTINUOUS BRYANT; Protocol Oxytocin/Lactated Ringer's (Pitocin In Lr 10 Units/1,000 Ml) 10 unit in 1,000 mls @ 12 mls/hr IV TITRATE BRYANT; Protocol Last Infusion: 11/26/17 06:30 Dose: 8 munits/min, 48 mls/hr Lidocaine HCl (Xylocaine 1%) 50 ml INJECT ONETIME ONE Stop: 11/25/17 13:21 Lidocaine HCl (Xylocaine 1%) Confirm Administered Dose 50 ml .ROUTE .[employer]-MED ONE Stop: 11/26/17 09:34 Last Admin: 11/26/17 10:13 Dose: 50 ml Ondansetron HCl (Zofran) 4 mg IVPUSH Q4H PRN PRN Reason: Nausea/Vomiting Last Admin: 11/26/17 03:24 Dose: 4 mg Sodium Chloride (Saline Flush) 10 ml FLUSH ASDIRECTED PRN PRN Reason: Keep Vein Open - Infant Interaction Infant Disposition, : in Room with Family Infant Interaction: Holding Infant Infant Feeding: Breastfed ; Nursed Well, Continues to Breastfeed Other Infant Feeding: Some formula supplementation due to elevated bilirubin level in baby. Support Person: Mother, Friend - Recovery Exam Fundal Tone: Firm Fundal Level: 2 Fingerbreadths Below Umbilicus Fundal Placement: Midline Lochia Amount: Small Lochia Color: Rubra/Red Perineum Description: Intact, Minimal Bruising/Swelling Episiotomy/Laceration: Approximated Bladder Status: Nonpalpable, Voiding Urinary Elimination: Voided - Exam General: Alert, Oriented, No Acute Distress HEENT: EOMI, Mucous Membr. Moist/[place] Neck: Supple Lungs: Clear to Auscultation, Normal Respiratory Effort Cardiovascular: Regular Rate, Regular Rhythm GI/Abdominal Exam: Normal Bowel Sounds, Soft, Other (Mild distention and tympanic to percussion.) Extremities: Normal Inspection, Normal Range of Motion, No Pedal Edema Skin: Warm, Dry, Intact Wound/Incisions: Healing Well Neurological: No New Focal Deficit Psy/Mental Status: Alert, Normal Affect, Normal Mood - Problem List & Annotations (1) (spontaneous vaginal delivery) SNOMED Code(s): 86875316 Code(s): O80 - ENCOUNTER FOR FULL-TERM UNCOMPLICATED DELIVERY Status: Acute Current Visit: Yes (2) (infant) SNOMED Code(s): 638617097 Code(s): Z78.9 - OTHER SPECIFIED HEALTH STATUS Status: Acute Current Visit: Yes - Problem List Review Problem List Initiated/Reviewed/Updated: Yes - My Orders Last 24 Hours: My Active Orders 11/26/17 21:00 Sennosides [Senna] 8.6 mg PO BEDTIME 11/27/17 10:45 Heat Therapy [OM.PC] PRN - Assessment Assessment:: 27 yo G1 now P1 female at 40 weeks gestation with with a right mediolateral episiotomy due to tight perineum. Both she and baby are stable and rooming in. Baby was placed skin to skin after initial resuscitation and was able to latch and nurse starting at 1005. 11/27/17: Patient is doing well with good pain relief. She is regularly and no complaints of nipple pain. - Plan Plan:: 27 yo G1 presents with contractions in 1st stage of labor. Plan: Expectant management. Pt does not desire epidural at this time. GBS negative-no antibiotics needed Patient has had elevated bp during labor, even after epidural was placed. Preeclampsia labs done and LDH is elevated and 2+ protein in the urine, otherwise normal. Will monitor bp closely and repeat labs in the am. Will continue to monitor for other signs of preeclampsia. She is planning to breast feed. Will need lots of education and support. 11/27/17: BP has been stable , running mostly 130/80 range. She denies headache, no peripheral edema. Will continue to monitor and plan for discharge home tomorrow. Continue support and education.
--- NOTE | 2017-11-28 11:30 | PCM.DCSUM1 ---
Discharge Summary - Hospital Course Free Text/Narrative:: This 27 year old presents at 40 weeks gestation by ultrasound with an EDC of November 26, 2017. She was complaining of regular uterine contractions that had started at 9 PM on November 24. Her membranes were intact. course was complicated by small for gestational age baby and nausea of . lab data includes blood type O+ with a negative Ab screen, Rubella Immune, RPR NR, Hep BsAg neg, HIV NR and Group B strep test negative. She presented at approximately 1300 hours on November 25 with contractions q 5 minutes. At that time, her cervix was 3 cm. FHR was reactive and reassuring. At 1730 on November 25, artificial rupture of membranes was performed with a return of small amount of meconium-stained fluid. At that time, her cervix was 4 cm and the vertex was at a -1-0 station. There was a prolonged heart rate deceleration after I had checked her when she was laying on her back. We changed her position to lying on her side, started an IV LR bolus, and applied oxygen. I did place an internal scalp lead at that time and did the artificial rupture of membranes. There was slow recovery of the heart rate back to a baseline of 90 to 100 and then over the next half an hour recovered back to the previously normal baseline of 130 bpm. Since that time, heart rate has been reactive with moderate variability, occasional variable decelerations, and no further prolonged decelerations. She received an epidural for analgesia at about 02 45 hours and had good relief. Her contractions spaced out and were only about every 5 minutes apart. Pitocin augmentation was started at 0500 due to very little progress of labor. Baby tolerated the Pitocin augmentation. She progressed to complete by 08 50 hours and was allowed to labor down for a few contractions, and then start pushing. Total duration of the first stage of labor was 36 hours There was adequate progress with pushing and FHR remained reassuring. The head was delivered spontaneously in the right occiput anterior position over right mediolateral episiotomy. There was thick meconium noted at delivery. Mouth and nose were suctioned with the bulb suction on the perineum. There was no nuchal cord. The anterior shoulder delivered easily and the posterior shoulder followed. The remainder of the infant was easily delivered and the mouth and nose were again suctioned. Time of delivery was 09 44. It was a baby girl and noted to spontaneously cry and was moving all four extremities. The cord was clamped and cut. Cord was noted to have 3 vessels. Baby was handed over to the pediatric nurses and Dr. Juarez to provide any necessary resuscitation due to the meconium. Baby was dried, stimulated and the stomach was suctioned. Baby did well and had Apgars of 8 and 9 at one and 5 minutes respectively. Once the baby was stable she was placed skin to skin on mother's chest . Cord blood was obtained. Birthweight was 6 lbs. 11 oz., 3030 g and the total duration of the second stage of labor was 54 minutes. Pitocin IV bolus with 10 units in 1000 ml was started after delivery of the baby. Gentle traction was placed on the cord and the placenta delivered spontaneously at . Total duration of the third stage of labor was 6 minutes. Placenta was intact. Uterine tone was firm after delivery of the placenta and uterine massage. There is no extension to the episiotomy and episiotomy was repaired in the usual manner using 3-0 vicryl. Mom and baby were left in stable condition and will be admitted to unit and nursery for routine care. Baby was able to latch and nurse at 1005. Diagnosis: Stroke: No Modified Rew Scale: No Symptoms at All Modified Rew Scale Score: 0 - Discharge Data Discharge Date: 11/28/17 Discharge Disposition: Home, Self-Care 01 Condition: Good - Discharge Diagnosis/Problem(s) (1) (spontaneous vaginal delivery) SNOMED Code(s): 26489080 ICD Code: O80 - ENCOUNTER FOR FULL-TERM UNCOMPLICATED DELIVERY Status: Acute Priority: Low Current Visit: Yes (2) (infant) SNOMED Code(s): 170072329 ICD Code: Z78.9 - OTHER SPECIFIED HEALTH STATUS Status: Acute Current Visit: Yes - Patient Instructions Diet: Regular Diet as Tolerated Activity: As Tolerated Driving: Do Not Drive Showering/Bathing: May Shower Notify Provider of: Fever, Increased Pain, Swelling and Redness, Drainage, Nausea and/or Vomiting - Discharge Plan Prescriptions/Med Rec: Docusate Calcium [Stool Softener] 480 mg PO BEDTIME #20 capsule Ibuprofen [Motrin] 600 mg PO Q6H PRN #20 tablet PRN Reason: Mild pain or fever Home Medications: Home Meds Alum Hydrox/Mag Hydrox/Simeth [Mag-Al Plus] 30 ml PO Q8H PRN cup 11/28/17 [Rx] Docusate Calcium [Stool Softener] 480 mg PO BEDTIME #20 capsule 11/28/17 [Rx] Ibuprofen [Motrin] 600 mg PO Q6H PRN #20 tablet 11/28/17 [Rx] Simethicone 80 mg PO Q4H PRN tab.chew 11/28/17 [Rx] Patient Handouts: , and Inducing , Exclusive , Vaginal Delivery, Care After, Tips for a Good Latch Referrals: Giulia Mcmullen MD [Primary Care Provider] - - Discharge Summary/Plan Comment DC Time >30 min.: No - General Info Date of Service: 11/28/17 Admission Dx/Problem (Free Text: Patient Status Order with Admit Dx/Problem 11/25/17 13:20 Patient Status [ADT] Routine Admission Diagnosis/Problem Admission Diagnosis/Problem Subjective Update: Patient has been doing well, using ibuprofen and tylenol with codeine for pain control. She has had a big appetite with no nausea. She has been and denies nipple pain. She has noticed some uterine cramping while nursing. Bleeding has been moderate with no clots. She has been ambulating well. She denies any dizziness. BP readings have been stable today. H/H today have dropped to 13.0 and 30.2. Platelets are normal. RPR test was negative. Functional Status: Reports: Pain Controlled, Tolerating Diet, Ambulating, Urinating - Review of Systems General: Reports: No Symptoms HEENT: Reports: No Symptoms Pulmonary: Reports: No Symptoms Cardiovascular: Reports: No Symptoms Gastrointestinal: Reports: No Symptoms Genitourinary: Reports: No Symptoms Musculoskeletal: Reports: No Symptoms Skin: Reports: No Symptoms Neurological: Reports: No Symptoms Psychiatric: Reports: No Symptoms - Patient Data Vitals - Most Recent: Last Vital Signs Temp 36.4 C 11/28/17 07:43 Pulse 86 11/28/17 07:43 Resp 16 11/28/17 07:43 BP 131/81 11/28/17 07:43 Pulse Ox 99 11/28/17 07:43 Weight - Most Recent: 90.31 kg I&O - Last 24 hours: Intake & Output 0611/28/17 11/28/17 22:59 06:59 14:59 Intake Total 240 Balance 240 Med Orders - Current: Current Medications Acetaminophen/Codeine Phosphate (Tylenol With Codeine No.3 300mg/30mg) 2 tab PO Q4H PRN PRN Reason: Pain (moderate 4-6) Al Hydroxide/Mg Hydroxide (Mag-Al Plus) 30 ml PO Q8H PRN PRN Reason: Heartburn Diphenhydramine HCl (Benadryl) 25 mg IVPUSH Q6H PRN PRN Reason: Itching Ibuprofen (Motrin) 600 mg PO Q6H PRN PRN Reason: Mild pain or fever Last Admin: 11/27/17 21:36 Dose: 600 mg Senna (Senna) 8.6 mg PO BEDTIME BRYANT Last Admin: 11/27/17 21:54 Dose: 8.6 mg Simethicone (Simethicone) 80 mg PO Q4H PRN PRN Reason: Gas Discontinued Medications Bupivacaine HCl (Sensorcaine-Mpf 0.25%) 10 ml .ROUTE .STK-MED ONE Stop: 11/26/17 22:01 Calcium Carbonate/Glycine (Tums) 1,000 mg PO Q2H PRN PRN Reason: Indigestion Calcium Gluconate (Calcium Gluconate) 1 gm IV ASDIRECTED PRN PRN Reason: respiratory distress Ephedrine Sulfate (Ephedrine Sulfate) 5 mg IVPUSH ASDIRECTED PRN PRN Reason: HYPOTENTSION Fentanyl (Sublimaze) 100 mcg EPIDUR Q3H PRN PRN Reason: Pain Last Admin: 11/26/17 02:38 Dose: 100 mcg Fentanyl (Sublimaze) Confirm Administered Dose 100 mcg .ROUTE .STK-MED ONE Stop: 11/26/17 02:15 Last Admin: 11/26/17 03:17 Dose: Not Given Fentanyl/Bupivacaine HCl (Fentanyl/Bupivacaine/Ns 2 Mcg-0.125% 100 Ml) 100 ml EPIDUR ASDIRECTED [facility] Last Admin: 11/26/17 02:39 Dose: 100 ml Lactated Ringer's (Ringers, Lactated) 1,000 mls @ 100 mls/hr IV ASDIRECTED [facility] Last Admin: 11/26/17 04:05 Dose: 100 mls/hr Oxytocin/Lactated Ringer's (Pitocin In Lr 10 Units/1,000 Ml) 10 unit in 1,000 mls @ 100 mls/hr IV .CONTINUOUS BRYANT; Protocol Oxytocin/Lactated Ringer's (Pitocin In Lr 10 Units/1,000 Ml) 10 unit in 1,000 mls @ 12 mls/hr IV TITRATE BRYANT; Protocol Last Infusion: 11/26/17 06:30 Dose: 8 munits/min, 48 mls/hr Lidocaine HCl (Xylocaine 1%) 50 ml INJECT ONETIME ONE Stop: 11/25/17 13:21 Lidocaine HCl (Xylocaine 1%) Confirm Administered Dose 50 ml .ROUTE .STK-MED ONE Stop: 11/26/17 09:34 Last Admin: 11/26/17 10:13 Dose: 50 ml Ondansetron HCl (Zofran) 4 mg IVPUSH Q4H PRN PRN Reason: Nausea/Vomiting Last Admin: 11/26/17 03:24 Dose: 4 mg Sodium Chloride (Saline Flush) 10 ml FLUSH ASDIRECTED PRN PRN Reason: Keep Vein Open - Exam General: Reports: Alert, Oriented, No Acute Distress HEENT: Reports: Pupils Equal, Pupils Reactive, EOMI, Mucous Membr. Moist/[place] Neck: Reports: Supple Lungs: Reports: Normal Respiratory Effort Cardiovascular: Reports: Regular Rate GI/Abdominal Exam: Normal Bowel Sounds, Soft, No Distention (Female) Exam: Normal External Exam, Other (Fundus firm, 2 fingers below U) Rectal (Female) Exam: Deferred Back Exam: Reports: Normal Inspection, Full Range of Motion, Other (No bruising or tenderness at epidural site) Extremities: Normal Inspection, Normal Range of Motion, Non-Tender, No Pedal Edema Skin: Reports: Warm, Dry, Intact Wound/Incisions: Reports: Healing Well Neurological: Reports: No New Focal Deficit Psy/Mental Status: Reports: Alert, Normal Affect, Normal Mood
[2017-11-28] MEDS: Ibuprofen 600 MG Tab PO PRN (13:56)
== END 2017-11-28 14:15 | disposition home or self-care (01) | DRG 560 ==
LOC: JD.OB 12:03 → JD.OBCHECK 12:03 → JD.OB 13:20 → OBSVTOIN 11-26 09:44 → JD.OB 11-26 09:45
PROVIDERS: ADMIT Family Medicine; ATTEND Family Medicine
PROC: 10907ZC Drainage of Amniotic Fluid, Therapeutic from Products of Conception, Via Natural or Artificial Opening (ICD-10-PCS; 2017-11-25)
PROC: 10E0XZZ Delivery of Products of Conception, External Approach (ICD-10-PCS; principal; 2017-11-26)
PROC: 0W8NXZZ Division of Female Perineum, External Approach (ICD-10-PCS; 2017-11-26)
PROC: 3E0S3GC Introduction of Other Therapeutic Substance into Epidural Space, Percutaneous Approach (ICD-10-PCS; 2017-11-26)
DX: O36.5930 Maternal care for other known or suspected poor fetal growth, third trimester, not applicable or unspecified (principal); Z3A.40 40 weeks gestation of pregnancy; Z37.0 Single live birth; O77.0 Labor and delivery complicated by meconium in amniotic fluid; O76 Abnormality in fetal heart rate and rhythm complicating labor and delivery; O63.1 Prolonged second stage (of labor); O26.893 Other specified pregnancy related conditions, third trimester; R03.0 Elevated blood-pressure reading, without diagnosis of hypertension
CPT/HCPCS: 36415; 51702; 59025; 59300; 59409; 80053; 81003; 82565; 83615; 84450; 84460; 84520; 84550; 85025; 85027; 86592; 86850; 86900; 86901; A9270-GY; J2405; J2590; J3010; J7120

== ENCOUNTER 2017-12-03 18:04 | Emergency (ER) | payer BC ==
[2017-12-03] MEDS ORDERED: HYDROmorphone 0.5 MG/0.5 ML SYRINGE IVPUSH STA (19:15)
[2017-12-03] MEDS ORDERED: LORazepam 2 MG/ML SDV IVPUSH STA (19:16)
--- NOTE | 2017-12-03 19:19 | EDM.PDOC ---
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 Her Shovel Logger was Dr. Giulia Mcmullen. Medical records from the delivery indicate that the patient received a right mediolateral episiotomy, which was subsequently repaired with 3-0 Vicryl. The notes indicate that the placenta was intact. The patient states that she follow-up with Dr. Mcmullen this past Sunday, 2017. I do not have notes from that encounter. The patient states that she was having "tissue" coming out of her vagina, and that Dr. Mcmullen was able to get "most of the tissue" out. She now presents to the ED stating that she is continuing to have tissue coming out of her vagina, along with a small amount of vaginal bleeding, approximately 3 pads per day. She reports vaginal pain. She is frightened that something is wrong. She is quite anxious. 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: Reports: : 1 Para: 1 Social & Family History - Family History Family Medical History: Noncontributory - Tobacco Use Smoking Status *Q: Never Smoker Second Hand Smoke Exposure: No - Caffeine Use Caffeine Use: Reports: Tea - Alcohol Use Alcohol Use History: No - Recreational Drug Use Recreational Drug Use: No - Living Situation & Occupation Living situation: Reports: ( currently in [place]), with Family ( Mother (temporarily), daughter) 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 ED EXAM, GENERAL - Physical Exam Exam: See Below Exam Limited By: No Limitations General Appearance: Alert, WD/WN, Anxious Eye Exam: Bilateral Eye: Normal Inspection Ears: Normal External Exam, Hearing Grossly Normal Nose: Normal Inspection, No Blood Throat/Mouth: Normal Inspection, Normal Lips, Normal Voice, No Airway Compromise Head: Atraumatic, Normocephalic Neck: Normal Inspection, Full Range of Motion Respiratory/Chest: No Respiratory Distress, Lungs Clear, Normal Breath Sounds, No Accessory Muscle Use Cardiovascular: Normal Peripheral Pulses, Regular Rate, Rhythm, No Edema, No Gallop, No JVD, No Murmur, No Rub Peripheral Pulses: 4+: Radial (L), Radial (R) GI/Abdominal: Normal Bowel Sounds, Soft, Non-Tender, No Organomegaly, No Distention, No Abnormal Bruit, No Mass Rectal (Female) Exam: Deferred Back Exam: Normal Inspection, Full Range of Motion, NT Extremities: Normal Inspection, Normal Range of Motion, No Pedal Edema, Normal Capillary Refill Neurological: Alert, Oriented, Normal Cognition, No Motor/Sensory Deficits Psychiatric: Anxious, Tearful Skin Exam: Warm, Dry, Intact, Normal Color, No Rash Course - Vital Signs Last Recorded V/S: Last Vital Signs Temp 37.1 C 12/03/17 18:18 Pulse 91 12/03/17 19:51 Resp 17 12/03/17 19:51 BP 127/84 12/03/17 19:51 Pulse Ox 100 12/03/17 19:51 - Orders/Labs/Meds Meds: Medications Discontinued Medications Generic Name Dose Route Start Last Admin Trade Name Armandoq PRN Reason Stop Dose Admin Hydromorphone HCl 0.5 mg 12/03/17 19:15 12/03/17 19:52 Dilaudid IVPUSH 12/03/17 19:16 0.5 mg ONETIME STA Administration Lorazepam 0.5 mg 12/03/17 19:16 12/03/17 19:51 Ativan IVPUSH 12/03/17 19:17 0.5 mg ONETIME STA Administration - Re-Assessments/Exams Free Text/Narrative Re-Assessment/Exam: 12/03/17 20:25 The patient urinated prior to undergoing a pelvic exam, and I am told that she passed a small blood clot. On pelvic exam, there was a small amount of some older appearing blood, but no tissue. The left side of the cervix appears to have a tear that that is healing. The episiotomy appears to be healing very well. I have ordered a pelvic ultrasound to evaluate for retained products of conception. 12/03/17 21:31 Pelvic ultrasound is read by Dr. Schneider as: 1. Small amount of heterogeneous material within the endometrial cavity either due to blood clots or minimal amount of retained products of conception. 2. Pelvic ultrasound is otherwise unremarkable. 12/03/17 21:[address] Giulia Mcmullen at 21:38. She feels that the amount of bleeding that the patient is having is normal for this stage of , and that the ultrasound does not indicate that the patient requires an emergent D& C. The patient's daughter has an appointment to be seen this coming Sunday, , however, the patient can follow-up with her tomorrow, if she feels necessary. Departure - Departure Time of Disposition: 21:45 Disposition: Home, Self-Care 01 Condition: Good Clinical Impression: bleeding - Discharge Information Referrals: Giulia Mcmullen MD [Primary Care Provider] - Forms: ED Department Discharge Additional Instructions: You were seen in the emergency room for the sensation of tissue coming out of her vagina, after delivering a baby on 11/26/2017. On examination in the ER, no tissue was seen, and the ultrasound of your pelvis showed a normal mix of some blood in your uterus. Your case was discussed with Dr. Mcmullen, who does not feel that a D&C is necessary at this time. For your constipation, we recommend that you switch from the stool softener that you are currently taking 2 [id number] Metamucil. Start small, 1 teaspoon in a large glass of water, then advance up to 1 teaspoon 3 times a day , as tolerated. Your daughter has an appointment to follow-up with Dr. Mcmullen this Sunday, , but you may follow-up with Dr. Mcmullen tomorrow, 12/04/2017, if you feel you cannot wait until Sunday. If any other problems, please do not hesitate to return to the ER.
--- NOTE | 2017-12-03 21:27 | US ---
Pelvic ultrasound: Multiple real-time images were obtained transabdominally. Uterus is generous in size compatible with state. Small amount of heterogeneous material is noted within the endometrial cavity either due to blood clot or minimal amount of retained products of conception. Endometrial thickness is about 2.3 cm. No myometrial abnormality is seen. Right and left ovaries show no abnormality. No free fluid is seen. Measurements: Uterus: Length 11.2 cm, AP height 6.9 cm, transverse width 9.4 cm Right ovary: 3.4 x 1.1 x 2.2 cm Left ovary: 4.0 x 2.1 x 1.6 cm Impression: 1. Small amount of heterogeneous material within the endometrial cavity either due to blood clot or minimal amount of retained products of conception. 2. Pelvic ultrasound is otherwise unremarkable. Diagnostic code #3
== END 2017-12-03 22:17 | disposition home or self-care (01) ==
LOC: JD.ED 18:04
DX: O72.1 Other immediate postpartum hemorrhage (principal)
CPT/HCPCS: 76856; 96374; 96375; 99284; J1170; J2060

== ENCOUNTER 2017-12-17 21:19 | Emergency (ER) | payer BC ==
--- NOTE | 2017-12-17 23:59 | EDM.PDOC ---
ED HPI GENERAL MEDICAL PROBLEM - General Chief Complaint: Abdominal Pain Stated Complaint: ABDOMINAL PAIN Time Seen by Provider: 12/17/17 21:48 - History of Present Illness INITIAL COMMENTS - FREE TEXT/NARRATIVE: 27-year-old female presents to the emergency room with abdominal pain. Patient is nearly 4 weeks and she's had some problems that sound like retained products, endometritis, and some generalized pain. Today her pain started up about for the afternoon at 7:00 she took 440 mg of Naprosyn. Currently the patient is on antibiotics for what sounds like endometritis and she was started on Wendy lax she is taken relax for 4 days. She is averaging about 4 small loose stools a day. She is no longer having any spotting or bleeding. The pain she had at 4:00 was severe. 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: - Past Surgical History Head Surgeries/Procedures: Reports: None Social & Family History - Family History Family Medical History: Noncontributory - Tobacco Use Smoking Status *Q: Never Smoker - Caffeine Use Caffeine Use: Reports: None - Recreational Drug Use Recreational Drug Use: No - Living Situation & Occupation Living situation: Reports: ( currently in [place]), with Family ( Mother (temporarily), daughter) 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 Denies: Constipation, Vomiting : Reports: No Symptoms Musculoskeletal: Reports: No Symptoms Skin: Reports: No Symptoms Neurological: Reports: No Symptoms Psychiatric: Reports: No Symptoms ED EXAM, GI/ABD - Physical Exam Exam: See Below Exam Limited By: No Limitations General Appearance: Alert, No Apparent Distress Head: Atraumatic, Normocephalic Neck: Normal Inspection, Supple, Non-Tender, Full Range of Motion. No: Lymphadenopathy (L), Lymphadenopathy (R) Respiratory/Chest: No Respiratory Distress, Lungs Clear, Normal Breath Sounds, No Accessory Muscle Use, Chest Non-Tender Cardiovascular: Regular Rate, Rhythm, No Edema, No Murmur GI/Abdominal Exam: Normal Bowel Sounds, Soft, Other (She has noticeable tenderness in the suprapubic area more so in the left lower quadrant and up into the left side of the abdomen left upper quadrant is nontender no rigidity rebound or guarding noted) Back Exam: Normal Inspection. No: CVA Tenderness (L), CVA Tenderness (R) Extremities: No Pedal Edema Neurological: Alert, Oriented, Normal Cognition, Normal Reflexes Skin Exam: Warm, Dry, Intact Course - Vital Signs Last Recorded V/S: Last Vital Signs Temp 36.9 C 12/17/17 22:46 Pulse 89 12/17/17 22:46 Resp 18 12/17/17 22:46 BP 144/87 H 12/17/17 22:46 Pulse Ox 99 12/17/17 22:46 - Orders/Labs/Meds Orders: Active Orders 24 hr Category Date Time Status Abdomen 2V AP Flat Upright [CR] Stat Exams 12/17/17 22:26 Taken HCG QUALITATIVE,URINE [URCHEM] Stat Lab 12/17/17 22:35 Ordered UA W/MICROSCOPIC [URIN] Stat Lab 12/17/17 22:40 Ordered Labs: Laboratory Tests 12/17/17 12/17/17 12/17/17 Range/Units 22:20 22:20 22:35 WBC 3.94 L (3.98-10.04) K/mm3 RBC 4.71 (3.98-5.22) M/mm3 Hgb 12.3 (11.2-15.7) gm/L Hct 37.7 (34.1-44.9) % MCV 80.0 (79.4-94.8) fl MCH 26.1 (25.6-32.2) pg MCHC 32.6 (32.2-35.5) g/dl RDW Std Deviation 46.5 H (36.4-46.3) fL Plt Count 344 (182-369) K/mm3 MPV 9.6 (9.4-12.3) fl Neutrophils % (Manual) 57 (40-60) % Band Neutrophils % 1 (0-10) % Lymphocytes % (Manual) 39 (20-40) % Atypical Lymphs % 0 % Monocytes % (Manual) 2 (2-10) % Eosinophils % (Manual) 1 (0.7-5.8) % Basophils % (Manual) 0 L (0.1-1.2) Platelet Estimate Adequate RBC Morph Comment Normal Sodium 139 (136-145) mEq/L Potassium 3.5 (3.5-5.1) mEq/L Chloride 104 (98-107) mEq/L Carbon Dioxide 24 (21-32) mEq/L Anion Gap 14.5 (5-15) BUN 13 (7-18) mg/dL Creatinine 1.0 (0.55-1.02) mg/dL Est Cr Clr Drug Dosing TNP Estimated GFR (MDRD) > 60 (>60) mL/min BUN/Creatinine Ratio 13.0 L (14-18) Glucose 94 (74-106) mg/dL Calcium 8.8 (8.5-10.1) mg/dL Total Bilirubin 0.4 (0.2-1.0) mg/dL AST 219 H (15-37) U/L ALT 140 H (14-59) U/L Alkaline Phosphatase 97 (46-116) U/L Total Protein 7.4 (6.4-8.2) g/dl Albumin 3.5 (3.4-5.0) g/dl Globulin 3.9 gm/dL Albumin/Globulin Ratio 0.9 L (1-2) Lipase 62 L (73-393) U/L Urine Color (Yellow) Urine Appearance (Clear) Urine pH (5.0-8.0) Ur Specific [place] (1.005-1.030) Urine Protein (Negative) Urine Glucose (UA) (Negative) Urine Ketones (Negative) Urine Occult Blood (Negative) Urine Nitrite (Negative) Urine Bilirubin (Negative) Urine Urobilinogen (0.2-1.0) Ur Leukocyte Esterase (Negative) Urine RBC (0-5) /hpf Urine WBC (0-5) /hpf Ur Epithelial Cells (0-5) /hpf Urine Bacteria (FEW) /hpf Urine Mucus (FEW) /hpf Urine HCG, Qual Negative (NEGATIVE) 12/17/17 Range/Units 22:40 WBC (3.98-10.04) K/mm3 RBC (3.98-5.22) M/mm3 Hgb (11.2-15.7) gm/L Hct (34.1-44.9) % MCV (79.4-94.8) fl MCH (25.6-32.2) pg MCHC (32.2-35.5) g/dl RDW Std Deviation (36.4-46.3) fL Plt Count (182-369) K/mm3 MPV (9.4-12.3) fl Neutrophils % (Manual) (40-60) % Band Neutrophils % (0-10) % Lymphocytes % (Manual) (20-40) % Atypical Lymphs % % Monocytes % (Manual) (2-10) % Eosinophils % (Manual) (0.7-5.8) % Basophils % (Manual) (0.1-1.2) Platelet Estimate RBC Morph Comment Sodium (136-145) mEq/L Potassium (3.5-5.1) mEq/L Chloride (98-107) mEq/L Carbon Dioxide (21-32) mEq/L Anion Gap (5-15) BUN (7-18) mg/dL Creatinine (0.55-1.02) mg/dL Est Cr Clr Drug Dosing Estimated GFR (MDRD) (>60) mL/min BUN/Creatinine Ratio (14-18) Glucose (74-106) mg/dL Calcium (8.5-10.1) mg/dL Total Bilirubin (0.2-1.0) mg/dL AST (15-37) U/L ALT (14-59) U/L Alkaline Phosphatase (46-116) U/L Total Protein (6.4-8.2) g/dl Albumin (3.4-5.0) g/dl Globulin gm/dL Albumin/Globulin Ratio (1-2) Lipase (73-393) U/L Urine Color Yellow (Yellow) Urine Appearance Clear (Clear) Urine pH 7.0 (5.0-8.0) Ur Specific [place] 1.020 (1.005-1.030) Urine Protein Trace H (Negative) Urine Glucose (UA) Negative (Negative) Urine Ketones Trace H (Negative) Urine Occult Blood Negative (Negative) Urine Nitrite Negative (Negative) Urine Bilirubin Negative (Negative) Urine Urobilinogen 0.2 (0.2-1.0) Ur Leukocyte Esterase Negative (Negative) Urine RBC 0-5 (0-5) /hpf Urine WBC 0-5 (0-5) /hpf Ur Epithelial Cells 0-5 (0-5) /hpf Urine Bacteria Few (FEW) /hpf Urine Mucus Moderate H (FEW) /hpf Urine HCG, Qual (NEGATIVE) - Re-Assessments/Exams Free Text/Narrative Re-Assessment/Exam: 12/18/17 00:02 Laboratory evaluation shows a normal white count of concern is some elevated transaminases in the setting of no proteinuria her blood pressure was a little high on admission. Reflexes normal recheck of her blood pressure shows a little pressure 129/76 with pulse of 88. Case discussed with Dr. Brown on-call for OB who recommends close follow-up in the clinic. I discussed this with the patient and she and apparently she scheduled to fly to [place] tomorrow. I' ve urged her to follow-up with Dr. Mcmullen first thing in the morning consider putting her travel plans hold as this needs to be sorted out she will think about it she also says she can be seen in the hospital in [place]. Departure - Departure Time of Disposition: 00:12 Disposition: Home, Self-Care 01 Clinical Impression: pain, Left lower quadrant pain, Elevated transaminase level - Discharge Information Referrals: Giulia Mcmullen MD [Primary Care Provider] - Additional Instructions: Follow-up with Dr. Mcmullen first thing in the morning Strong consideration to postponing your travel plans Return to the emergency room with any questions problems or worsening symptoms. Finish your antibiotics and take the wendy lax as directed. - My Orders Last 24 Hours: My Active Orders 12/17/17 22:26 Abdomen 2V AP Flat Upright [CR] Stat 12/17/17 22:35 HCG QUALITATIVE,URINE [URCHEM] Stat 12/17/17 22:40 UA W/MICROSCOPIC [URIN] Stat - Assessment/Plan Last 24 Hours: My Active Orders 12/17/17 22:26 Abdomen 2V AP Flat Upright [CR] Stat 12/17/17 22:35 HCG QUALITATIVE,URINE [URCHEM] Stat 12/17/17 22:40 UA W/MICROSCOPIC [URIN] Stat
--- NOTE | 2017-12-18 08:18 | CR ---
Abdomen: Supine and upright views of the abdomen were obtained. Comparison: No prior abdominal x-ray. Bowel gas pattern appears within normal limits. No abnormal calcifications or soft tissue abnormality is seen. Bony structures are unremarkable. Soft tissue density is seen within the pelvis most likely due to mildly distended urine filled bladder. Please correlate. Impression: 1. Soft tissue density within the pelvis as described above. Diagnostic code #2
== END 2017-12-18 00:27 | disposition home or self-care (01) ==
LOC: JD.ED 21:19
DX: O99.89 Other specified diseases and conditions complicating pregnancy, childbirth and the puerperium (principal); R10.32 Left lower quadrant pain; R74.0 Nonspecific elevation of levels of transaminase and lactic acid dehydrogenase [LDH]; Z79.899 Other long term (current) drug therapy
CPT/HCPCS: 36415; 74019; 74019-26; 80053; 81001; 81025; 83690; 85007; 85027; 99283; 99284

== ENCOUNTER 2019-07-06 22:14 | Emergency (ER) | payer BC ==
--- NOTE | 2019-07-06 23:06 | EDM.PDOC ---
ED HPI GENERAL MEDICAL PROBLEM - General Chief Complaint: Gastrointestinal Problem Stated Complaint: 34 WKS /VOMITING BLOOD Time Seen by Provider: 07/06/19 23:05 Source of Information: Reports: Patient, RN Notes Reviewed - History of Present Illness INITIAL COMMENTS - FREE TEXT/NARRATIVE: 28 year old female comes in with nausea vomiting, diarrhea. Also about 35 weeks . States the has been going well. A very young daughter that was ill yesterday with vomiting and diarrhea. The daughter is doing better today. Patient's symptoms came on about 6 hours ago. She states she has had 2 episodes of severe vomiting and has had multiple episodes of watery diarrhea. The last time she vomited there was a streak of blood. Her throat feels sore. occasional abdominal pain and cramping with this but no abdominal pain or cramping at time of my exam. She states "baby has been active". No vaginal bleeding or spotting. - Related Data Allergies Allergy/AdvReac Type Severity Reaction Status Date / Time No Known Allergies Allergy Verified 07/06/19 22:27 Home Meds: Home Meds . 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: - Past Surgical History Head Surgeries/Procedures: Reports: None Social & Family History - Family History Family Medical History: Noncontributory - Tobacco Use Smoking Status *Q: Never Smoker Second Hand Smoke Exposure: No - Caffeine Use Caffeine Use: Reports: None - Recreational Drug Use Recreational Drug Use: No - Living Situation & Occupation Living situation: Reports: ( currently in [place]), with Family ( Mother (temporarily), daughter) 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) ED ROS GENERAL - Review of Systems Review Of Systems: See Below Constitutional: Denies: Fever, Chills, Diaphoresis HEENT: Denies: Throat Pain Respiratory: Denies: Shortness of Breath Cardiovascular: Denies: Chest Pain GI/Abdominal: Reports: Abdominal Pain, Diarrhea, Nausea (Gone), Vomiting Musculoskeletal: Denies: Back Pain Skin: Reports: No Symptoms Neurological: Reports: No Symptoms ED EXAM, GI/ABD - Physical Exam Exam: See Below General Appearance: Alert, Mild Distress Eyes: Bilateral: Normal Appearance Throat/Mouth: Normal Inspection, Normal Oropharynx Head: Atraumatic Neck: Supple Respiratory/Chest: No Respiratory Distress, Lungs Clear, Normal Breath Sounds Cardiovascular: Regular Rate, Rhythm GI/Abdominal Exam: Distended (Appropriately distended for 35 week , nontender at this time) Extremities: Normal Inspection Neurological: Alert, No Motor/Sensory Deficits Skin Exam: Warm, Dry Course - Vital Signs Last Recorded V/S: Last Vital Signs Temp 98 F 07/06/19 22:24 Pulse 83 07/06/19 22:24 Resp 18 07/06/19 22:24 BP 132/74 07/06/19 22:24 Pulse Ox 99 07/06/19 22:24 - Orders/Labs/Meds Orders: Active Orders 24 hr Category Date Time Status CULTURE STREP A CONFIRMATION [RM] Stat Lab 07/06/19 22:32 Results Rapid Strep w/culture conf [STREP SCRN A RAPID W CULT Lab 07/06/19 22:32 Results CONF] [RM] Stat Sodium Chloride 0.9% [Normal Saline] 1,000 ml Med 07/06/19 23:15 Active IV ONETIME Medication Orders Sodium Chloride (Normal Saline) 1,000 mls @ 999 mls/hr IV ONETIME BRYANT Last Admin: 07/06/19 23:18 Dose: 999 mls/hr Labs: Laboratory Tests 07/06/19 07/06/19 07/06/19 Range/Units 22:59 22:59 22:59 WBC 5.86 (3.98-10.04) K/mm3 RBC 4.49 (3.98-5.22) M/mm3 Hgb 12.4 (11.2-15.7) gm/dl Hct 37.3 (34.1-44.9) % MCV 83.1 (79.4-94.8) fl MCH 27.6 (25.6-32.2) pg MCHC 33.2 (32.2-35.5) g/dl RDW Std Deviation 40.8 (36.4-46.3) fL Plt Count 258 (182-369) K/mm3 MPV 10.0 (9.4-12.3) fl Sodium 135 L (136-145) mEq/L Potassium 3.6 (3.5-5.1) mEq/L Chloride 101 (98-107) mEq/L Carbon Dioxide 22 (21-32) mEq/L Anion Gap 15.6 H (5-15) BUN 6 L (7-18) mg/dL Creatinine 0.5 L (0.55-1.02) mg/dL Est Cr Clr Drug Dosing 184.38 mL/min Estimated GFR (MDRD) > 60 (>60) mL/min BUN/Creatinine Ratio 12.0 L (14-18) Glucose 86 (74-106) mg/dL Calcium 8.7 (8.5-10.1) mg/dL HCG, Qual Positive H (NEGATIVE) Meds: Medications Generic Name Dose Route Start Last Admin Trade Name Freq PRN Reason Stop Dose Admin Sodium Chloride 1,000 mls @ 999 mls/hr 07/06/19 23:15 07/06/19 23:18 Normal Saline IV 999 mls/hr ONETIME BRYANT Administration - Re-Assessments/Exams Free Text/Narrative Re-Assessment/Exam: 07/07/19 00:13 No further vomiting while here in the ED. We have given 1 L of fluid. Some labs were put in by triage nurse at time of triage. They are relatively normal. Influenza screen and strep screen negative. Nurse also did check heart tones and they are reported to been 126. Departure - Departure Time of Disposition: 00:05 Disposition: Home, Self-Care 01 Condition: Fair Clinical Impression: Vomiting, Diarrhea, Third trimester - Discharge Information Referrals: Giulia Mcmullen MD [Primary Care Provider] - Forms: ED Department Discharge Additional Instructions: Clear liquids until noon tomorrow, then very careful bland diet as tolerated, avoid milk and dairy products for at least 2 or 3 days. Follow-up clinic if not much better within 1-2 days as expected, return to ED as needed if symptoms worsening in any way. Sepsis Event Note - Evaluation Sepsis Screening Result: No Definite Risk - Focused Exam Vital Signs: Vital Signs Temp Pulse Resp BP Pulse Ox 07/06/19 22:24 98 F 83 18 132/74 99 Date Exam was Performed: 07/07/19 Time Exam was Performed: 00:09 - My Orders Last 24 Hours: My Active Orders 07/06/19 22:32 CULTURE STREP A CONFIRMATION [RM] Stat Rapid Strep w/culture conf [STREP SCRN A RAPID W CULT CONF] [RM] Stat 07/06/19 23:15 Sodium Chloride 0.9% [Normal Saline] 1,000 ml IV ONETIME - Assessment/Plan Last 24 Hours: My Active Orders 07/06/19 22:32 CULTURE STREP A CONFIRMATION [] Stat Rapid Strep w/culture conf [STREP SCRN A RAPID W CULT CONF] [] Stat 07/06/19 23:15 Sodium Chloride 0.9% [Normal Saline] 1,000 ml IV ONETIME
[2019-07-06] MEDS ORDERED: Sodium Chloride 0.9% 1,000 ML IV SCH (23:15)
== END 2019-07-07 00:17 | disposition home or self-care (01) ==
LOC: JD.ED 22:14
DX: O21.2 Late vomiting of pregnancy (principal); O99.89 Other specified diseases and conditions complicating pregnancy, childbirth and the puerperium; R19.7 Diarrhea, unspecified; Z3A.35 35 weeks gestation of pregnancy
CPT/HCPCS: 36415; 80048; 84703; 85027; 87081; 87430; 87804; 96360; 99284; J7030; 99283

== ENCOUNTER 2019-08-14 11:05 | Inpatient (IN) | payer BC ==
[~2019-08-14 11:05] MED LIST: Bupivacaine 0.25% 10 ML SDV ONE
[2019-08-14] MEDS ORDERED: Ondansetron 4 MG/2 ML SDV IVPUSH PRN (12:03)
[2019-08-14] MEDS ORDERED: Sodium Chloride 0.9% 10 ML Syringe FLUSH PRN (12:03)
[2019-08-14] MEDS ORDERED: Oxytocin/Lactated Ringers 10 UNIT/1,000 ML BAG IV SCH ×2 (12:15→15:30)
[2019-08-14] MEDS ORDERED: Penicillin G Potassium 5 MILLUNITS in Sodium Chloride 0.9% 100 ML IV SCH (12:15)
[2019-08-14] MEDS: Lactated Ringers 1,000 ML IV SCH ×4 (13:00→19:42)
[2019-08-14] MEDS ORDERED: ePHEDrine 50 MG/ML SDV IVPUSH PRN (14:16)
[2019-08-14] MEDS ORDERED: fentaNYL 100 MCG/2 ML SDV EPIDUR PRN (14:16)
[2019-08-14] MEDS ORDERED: diphenhydrAMINE 50 MG/ML SDV IVPUSH PRN (14:16)
[2019-08-14] MEDS: Bupivacaine/fentaNYL/NS 100 ML Bag EPIDUR PRN ×2 (14:35→22:06)
--- NOTE | 2019-08-14 15:18 | PCM.PREANE ---
Preanesthetic Assessment - Procedure Proposed Procedure: Labor Epidural - Anesthesia/Transfusion/Family Hx Anesthesia History: Prior Anesthesia Without Reaction Family History of Anesthesia Reaction: No Transfusion History: No Prior Transfusion(s) - Review of Systems General: No Symptoms Pulmonary: No Symptoms Cardiovascular: No Symptoms Gastrointestinal: Other (GERD) Neurological: Other - Physical Assessment Height: 1.78 m Weight: 84.822 kg ASA Class: 2 Mental Status: Alert & Oriented x3 Airway Class: Mallampati = 2 Dentition: Reports: Normal Dentition Thyro-Mental Finger Breadths: 3 Mouth Opening Finger Breadths: 3 ROM/Head Extension: Full Lungs: Clear to Auscultation, Normal Respiratory Effort Cardiovascular: Regular Rate, Regular Rhythm - Lab Values: Laboratory Last Values WBC 4.16 K/mm3 (3.98-10.04) 08/14/19 12:26 RBC 4.35 M/mm3 (3.98-5.22) 08/14/19 12:26 Hgb 11.8 gm/dl (11.2-15.7) 08/14/19 12:26 Hct 35.8 % (34.1-44.9) 08/14/19 12:26 MCV 82.3 fl (79.4-94.8) 08/14/19 12: MCH 27.1 pg (25.6-32.2) 08/14/19 12:26 MCHC 33.0 g/dl (32.2-35.5) 08/14/19 12:26 RDW Std Deviation 43.0 fL (36.4-46.3) 08/14/19 12:26 Plt Count 259 K/mm3 (182-369) 08/14/19 12:26 MPV 10.6 fl (9.4-12.3) 08/14/19 12:26 Neut % (Auto) 52.7 % (34.0-71.1) 08/14/19 12:26 Lymph % (Auto) 38.9 % (19.3-51.7) 08/14/19 12:26 Allen % (Auto) 7.5 % (4.7-12.5) 08/14/19 12:26 Eos % (Auto) 0.7 (0.7-5.8) 08/14/19 12:26 Baso % (Auto) 0.2 % (0.1-1.2) 08/14/19 12: Neut # (Auto) 2.19 K/mm3 (1.56-6.13) 08/14/19 12: Lymph # (Auto) 1.62 K/mm3 (1.18-3.74) 08/14/19 12: Allen # (Auto) 0.31 K/mm3 (0.24-0.36) 08/14/19 12: Eos # (Auto) 0.03 K/mm3 (0.04-0.36) L 08/14/19 12: Baso # (Auto) 0.01 K/mm3 (0.01-0.08) 08/14/19 12:26 - Allergies Allergies/Adverse Reactions: Allergies Allergy/AdvReac Type Severity Reaction Status Date / Time No Known Allergies Allergy Verified 08/14/19 12:03 - Acknowledgements Anesthesia Type Planned: Epidural Pt an Appropriate Candidate for the Planned Anesthesia: Yes Alternatives and Risks of Anesthesia Discussed w Pt/Guardian: Yes Pt/Guardian Understands and Agrees with Anesthesia Plan: Yes PreAnesthesia Questionnaire - Past Health History Medical/Surgical History: Denies Medical/Surgical History 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 [No Known Home Meds] 07/06/19 [History] - CURRENT (IN HOUSE) MEDS Current Meds: Current Medications Diphenhydramine HCl (Benadryl) 25 mg IVPUSH Q6H PRN PRN Reason: pruritis Ephedrine Sulfate (Ephedrine Sulfate) 5 mg IVPUSH ASDIRECTED PRN PRN Reason: Hypotension Fentanyl (Sublimaze) 100 mcg EPIDUR Q3H PRN PRN Reason: Pain Last Admin: 08/14/19 14:32 Dose: 100 mcg Fentanyl/Bupivacaine HCl (Fentanyl/Bupivacaine/Ns 2 Mcg-0.125% 100 Ml) 100 ml EPIDUR ASDIRECTED PRN PRN Reason: Pain Last Admin: 08/14/19 14:35 Dose: 100 ml Lactated Ringer's (Ringers, Lactated) 1,000 mls @ 100 mls/hr IV ASDIRECTED BRYANT Last Admin: 08/14/19 14:36 Dose: 100 mls/hr Oxytocin/Lactated Ringer's (Pitocin In Lr 10 Units/1,000 Ml) 10 unit in 1,000 mls @ 100 mls/hr IV .CONTINUOUS BRYANT Penicillin G Potassium 2.5 (millunits/ Sodium Chloride) 100 mls @ 100 mls/hr IV Q4H BRYANT Ondansetron HCl (Zofran) 4 mg IVPUSH Q4H PRN PRN Reason: Nausea/Vomiting Sodium Chloride (Saline Flush) 10 ml FLUSH ASDIRECTED PRN PRN Reason: Keep Vein Open Discontinued Medications Penicillin G Potassium 5 (millunits/ Sodium Chloride) 100 mls @ 100 mls/hr IV ONETIME BRYANT Stop: 08/14/19 14:00 Last Admin: 08/14/19 12:58 Dose: 100 mls/hr
[2019-08-14] MEDS ORDERED: Acetaminophen 325 MG Tab PO PRN ×2 (15:56→19:54)
[2019-08-14] MEDS: Penicillin G Potassium 2.5 MILLUNITS in Sodium Chloride 0.9% 100 ML IV SCH ×2 (17:00→20:14)
--- NOTE | 2019-08-14 18:15 | PCM.LDHP ---
L&D History of Present Illness - General Date of Service: 08/14/19 Admit Problem/Dx: Patient Status Order with Admit Dx/Problem 08/14/19 12:04 Patient Status [ADT] Routine Admission Diagnosis/Problem Admission Diagnosis/Problem Source of Information: Patient History Limitations: Reports: No Limitations - History of Present Illness Introduction:: 28yo at 40+1 weeks gestation presented to Labor and Delivery having some contractions. There were irregular contractions noted on the monitor. She is GBS positive and due, so we have decided to keep her and will start Pen G IV for prophylaxis and then start pitocin to augment her contractions. She was 3- 4 cm dilated when I saw her in the clinic on 08/11/19 and was about that dilation on admission. Early complicated by Hyperemesis Gravidarum. Her labs determined that she is blood type O positive, Infectious disease testing all negative, 1 hour glucola wnl and RPR negative. She had GBS bacteriuria so GBS vaginal swab was not done. She plans to breastfeed and will circumcise baby if she has a boy. She had both her influenza and Tdap vaccinations in May 2019. Her first baby was delivered by at 40 weeks and was 6 lb 11 oz, baby girl. Pain Score: 7 - Related Data Allergies/Adverse Reactions: Allergies Allergy/AdvReac Type Severity Reaction Status Date / Time No Known Allergies Allergy Verified 08/14/19 12:03 Home Medications: Home Meds [id number]/Iron Fumarate/FA/DSS [ 19 Tablet] 1 tab PO DAILY 08/14/19 [ History] Past Medical History - Past Health History Medical/Surgical History: Denies Medical/Surgical History Gastrointestinal History: Reports: GERD SU[employer]ING [employer] History: Reports: - Past Surgical History Head Surgeries/Procedures: Reports: None Social & Family History - Family History Family Medical History: Noncontributory - Tobacco Use Smoking Status *Q: Never Smoker Second Hand Smoke Exposure: No - Caffeine Use Caffeine Use: Reports: None - Recreational Drug Use Recreational Drug Use: No - Living Situation & Occupation Living situation: Reports: , with Family (Mother (temporarily), daughter) 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) H&P Review of Systems - Review of Systems: Review Of Systems: See Below General: Reports: Fatigue HEENT: Reports: No Symptoms Pulmonary: Reports: No Symptoms Cardiovascular: Reports: No Symptoms Gastrointestinal: Reports: Nausea Genitourinary: Reports: No Symptoms Musculoskeletal: Reports: No Symptoms Skin: Reports: No Symptoms Psychiatric: Reports: No Symptoms Neurological: Reports: Tremors (She just started feeling shaky and nauseated and has vomited) Hematologic/Lymphatic: Reports: Anemia Immunologic: Reports: No Symptoms L&D Exam - Exam Exam: See Below - Vital Signs Weight: 84.822 kg - OB Specific Contraction Duration (sec): 60 secs Contraction Frequency (min): Every 5 minutes at this time Contraction Intensity: Moderate Movement: Active Heart Tones: Present Heart Tones per Min: 120 Heart Rate (FHR) Variability: Moderate (6-25 bmp) Presentation: Vertex Estimated Weight: 7 lb - Miles Score Miles Score Cervix Position: Anterior Miles Score Consistency: Soft Miles Score Effacement: 31-50% Miles Score Dilation: > 5 cm Miles Score 's Station: -2 Miles Score Total: 9 - Exam General: Alert, Oriented, Mild Distress HEENT: Conjunctiva Clear, Mucosa Moist & [place] Lungs: Normal Respiratory Effort Cardiovascular: Regular Rate, Regular Rhythm GI/Abdominal Exam: Normal Bowel Sounds, Soft Rectal Exam: Deferred Genitourinary: Cervical dilitation Extremities: Normal Inspection, No Pedal Edema Skin: Warm, Dry, Intact Psychiatric: Anxious - Patient Data Lab Results Last 24 hrs: Laboratory Results - last 24 hr 08/14/19 Range/Units 12:26 WBC 4.16 (3.98-10.04) K/mm3 RBC 4.35 (3.98-5.22) M/mm3 Hgb 11.8 (11.2-15.7) gm/dl Hct 35.8 (34.1-44.9) % MCV 82.3 (79.4-94.8) fl MCH 27.1 (25.6-32.2) pg MCHC 33.0 (32.2-35.5) g/dl RDW Std Deviation 43.0 (36.4-46.3) fL Plt Count 259 (182-369) K/mm3 MPV 10.6 (9.4-12.3) fl Neut % (Auto) 52.7 (34.0-71.1) % Lymph % (Auto) 38.9 (19.3-51.7) % [place] % (Auto) 7.5 (4.7-12.5) % Eos % (Auto) 0.7 (0.7-5.8) Baso % (Auto) 0.2 (0.1-1.2) % Neut # (Auto) 2.19 (1.56-6.13) K/mm3 Lymph # (Auto) 1.62 (1.18-3.74) K/mm3 [place] # (Auto) 0.31 (0.24-0.36) K/mm3 Eos # (Auto) 0.03 L (0.04-0.36) K/mm3 Baso # (Auto) 0.01 (0.01-0.08) K/mm3 Result Diagrams: 08/14/19 12:26 - Problem List (1) 40 weeks gestation of SNOMED Code(s): 64268956 ICD Code: Z3A.40 - 40 WEEKS GESTATION OF Status: Acute Current Visit: Yes (2) Group B streptococcal bacteriuria SNOMED Code(s): 82939869 ICD Code: R82.71 - BACTERIURIA Status: Acute Current Visit: Yes Problem List Initiated/Reviewed/Updated: Yes Orders Last 24hrs: Active Orders 24 hr Category Date Time Status Patient Status [ADT] Routine ADT 08/14/19 12:04 Active Activity as Tolerated [RC] PFP Care 08/14/19 12:03 Active Communication Order [RC] ASDIRECTED Care 08/14/19 12:03 Active Notify Provider [RC] ASDIRECTED Care 08/14/19 14:16 Active Notify Provider [RC] PFP Care 08/14/19 12:03 Active Notify Provider [RC] PRN Care 08/14/19 12:03 Active Peripheral IV Care [RC] . DIRECTED Care 08/14/19 12:04 Active Pump Management, Intrathecal [RC] ASDIRECTED Care 08/14/19 12:04 Active Vital Signs [RC] PER UNIT ROUTINE Care 08/14/19 12:03 Active Regular Diet [DIET] Diet 08/14/19 Dinner Active RAPID PLASMA REAGIN,RPR [CHEM] Routine Lab 08/14/19 12:03 Ordered Acetaminophen [Tylenol] Med 08/14/19 15:56 Active 650 mg PO Q6H PRN Bupivacaine/fentaNYL/NS [fentaNYL/Bupivacaine/NS 2 MCG- Med 08/14/19 14:16 Active 0.125% 100 ML] 100 ml EPIDUR ASDIRECTED PRN Lactated Ringers [Ringers, Lactated] 1,000 ml Med 08/14/19 12:15 Active IV ASDIRECTED Ondansetron [Zofran] Med 08/14/19 12:03 Active 4 mg IVPUSH Q4H PRN Oxytocin/Lactated Ringers [Pitocin in LR 10 Units/1,000 Med 08/14/19 12:15 Active ML] 10 unit in 1,000 ml IV .CONTINUOUS Oxytocin/Lactated Ringers [Pitocin in LR 10 Units/1,000 Med 08/14/19 15:30 Active ML] 10 unit in 1,000 ml IV TITRATE Penicillin G Potassium [Pfizerpen] 2.5 millunits Med 08/14/19 16:30 Active Sodium Chloride 0.9% [Normal Saline] 100 ml IV Q4H Sodium Chloride 0.9% [Saline Flush] Med 08/14/19 12:03 Active 10 ml FLUSH ASDIRECTED PRN diphenhydrAMINE [Benadryl] Med 08/14/19 14:16 Active 25 mg IVPUSH Q6H PRN ePHEDrine [ePHEDrine sulfate] Med 08/14/19 14:16 Active 5 mg IVPUSH ASDIRECTED PRN fentaNYL [Sublimaze] Med 08/14/19 14:16 Active 100 mcg EPIDUR Q3H PRN Electronic Heart Tones Ext w TOCO [WOMSER] Oth 08/14/19 12:03 Ordered Routine Electronic Heart Tones Internal [WOMSER] Per Unit Oth 08/14/19 12:03 Ordered Routine Peripheral IV Insertion Adult [OM.PC] Routine Oth 08/14/19 12:03 Ordered Resuscitation Status Routine Resus Stat 08/14/19 12:03 Ordered Medication Orders Acetaminophen (Tylenol) 650 mg PO Q6H PRN PRN Reason: Pain Last Admin: 08/14/19 16:05 Dose: 650 mg Diphenhydramine HCl (Benadryl) 25 mg IVPUSH Q6H PRN PRN Reason: pruritis Ephedrine Sulfate (Ephedrine Sulfate) 5 mg IVPUSH ASDIRECTED PRN PRN Reason: Hypotension Fentanyl (Sublimaze) 100 mcg EPIDUR Q3H PRN PRN Reason: Pain Last Admin: 08/14/19 14:32 Dose: 100 mcg Fentanyl/Bupivacaine HCl (Fentanyl/Bupivacaine/Ns 2 Mcg-0.125% 100 Ml) 100 ml EPIDUR ASDIRECTED PRN PRN Reason: Pain Last Admin: 08/14/19 14:35 Dose: 100 ml Lactated Ringer's (Ringers, Lactated) 1,000 mls @ 100 mls/hr IV ASDIRECTED BRYANT Last Admin: 08/14/19 15:39 Dose: 100 mls/hr Infusion: 08/14/19 15:39 Dose: 100 mls/hr Admin: 08/14/19 14:36 Dose: 100 mls/hr Infusion: 08/14/19 14:36 Dose: 100 mls/hr Admin: 08/14/19 13:00 Dose: 100 mls/hr Oxytocin/Lactated Ringer's (Pitocin In Lr 10 Units/1,000 Ml) 10 unit in 1,000 mls @ 100 mls/hr IV .CONTINUOUS BRYANT Penicillin G Potassium 2.5 (millunits/ Sodium Chloride) 100 mls @ 100 mls/hr IV Q4H BRYANT Last Admin: 08/14/19 15:58 Dose: 100 mls/hr Oxytocin/Lactated Ringer's (Pitocin In Lr 10 Units/1,000 Ml) 10 unit in 1,000 mls @ 12 mls/hr IV TITRATE BRYANT; Protocol Last Titration: 08/14/19 15:57 Dose: 4 munits/min, 24 mls/hr Admin: 08/14/19 15:39 Dose: 2 munits/min, 12 mls/hr Ondansetron HCl (Zofran) 4 mg IVPUSH Q4H PRN PRN Reason: Nausea/Vomiting Last Admin: 08/14/19 18:01 Dose: 4 mg Sodium Chloride (Saline Flush) 10 ml FLUSH ASDIRECTED PRN PRN Reason: Keep Vein Open Assessment/Plan Comment:: 28 yo at 40+1weeks gestation in early labor. Pitocin at 6 mu/min and not much cervical change since admission. AROM performed now to augment labor and clear fluid drained. She is comfortable with her epidural. She just started feeling nauseated and shaky. monitor strip is Category I. She has received 2 doses of IV Pen G so far and has not had any fever. Plan: Increase pitocin to get contractions closer together. Expectant management. Anticipate vaginal delivery. Continue Pen G IV q 4 hours until delivery. Pt plans to breastfeed
--- NOTE | 2019-08-15 01:05 | PCM.DEL ---
L & D Note - General Info Date of Service: 08/15/19 Mother's Due Date: 08/13/19 - Delivery Note Labor: Spontaneous, Augmented by ARM, Augmented by Oxytocin Delivery Outcome: Livebirth Delivery Method: Spontaneous Vaginal Delivery-Single Infant Delivery Mode: Spontaneous Presentation: Left Occiput Anterior (ANISA) Nuchal Cord: None Prep: Povidone-Iodine (Betadine Anesthesia Type: Epidural Amniotic Fluid Description: Clear Episiotomy Type: None Laceration: 2nd Degree, Labial (right labial,repaired with running subcuticular suture with 4-0 vicryl) Suture type: Vicryl Suture size: 3-0 Placenta: Intact, Spontaneous Cord: 3 Vessels Estimated Blood Loss: 100 Resuscitation Needed: No : Suctioned, Bulb Syringe, Stimulated, Warmed, [place] Used Provider: Giulia Mcmullen Score 1 min: 8 Score 5 min: 9 Delivery Comments (Free Text/Narrative):: 28yo at 40+1 weeks gestation presented to Labor and Delivery having some contractions. There were irregular contractions noted on the monitor. She is GBS positive and due, so we have decided to keep her and will start Pen G IV for prophylaxis and then start pitocin to augment her contractions. She was 3- 4 cm dilated when I saw her in the clinic on 08/11/19 and was about that dilation on admission. Early complicated by Hyperemesis Gravidarum. Her labs determined that she is blood type O positive, Infectious disease testing all negative, 1 hour glucola wnl and RPR negative. She had GBS bacteriuria so GBS vaginal swab was not done. She plans to breastfeed and will circumcise baby if she has a boy. She had both her influenza and Tdap vaccinations in May 2019. Her first baby was delivered by at 40 weeks and was 6 lb 11 oz, baby girl. Pitocin was started after the Penicillin G loading dose was infused. She did receive an epidural at about 1400 and had good relief with that. I checked her at 1800 and she was still 5 cm dilated, 50% effaced and station -2. AROM was done to augment labor and clear fluid drained. Pitocin was increased to 6 mu/ min. Her contractions increased in intensity and became regular. By 2129 she was 6 cm dilated, 100% effaced and station 0. She was completely dilated by about 2330 and I was called and came in. She had received a total of 3 doses of Penicillin G IV. We set her up and had her start pushing and she did very well pushing. Baby tolerated second stage of labor. Head delivered from ANISA presentation, there was no nuchal cord. Mouth and nose suctioned with bulb suction. The rest of the baby delivered without difficulty. Time of delivery was 0003. Baby girl. She started crying with drying and stimulation. Cord was clamped and baby placed skin to skin on mother's abdomen. Once the cord stopped pulsating, it was cut and then baby was moved up onto Mom's chest. Pitocin IV bolus was started after delivery of baby. Placenta delivered spontaneously at 0009 and it was intact and 3 vessels in the cord. EBL 100 ml. THere was a second degree perineal laceration that was repaired with 3-0 vicryl in the usual manner. There was a small right labial tear superiorly and that was repaired with a running subcuticular stitch using 4-0 vicryl. Fundus was firm. Bimanual exam was done and some blood clots were expressed. Baby was latched and nursing in the delivery room within 30 minutes of delivery. Both Mom and baby were left in the delivery room in stable condition. - General Info Date of Service: 08/15/19 Admission Dx/Problem (Free Text): Spontaneous vaginal delivery Functional Status: Reports: Pain Controlled - Review of Systems General: Reports: No Symptoms HEENT: Reports: No Symptoms Pulmonary: Reports: No Symptoms Cardiovascular: Reports: No Symptoms Gastrointestinal: Reports: No Symptoms Genitourinary: Reports: No Symptoms Musculoskeletal: Reports: No Symptoms Skin: Reports: No Symptoms Neurological: Reports: No Symptoms Psychiatric: Reports: No Symptoms - Patient Data Vitals - Most Recent: Last Vital Signs Temp 36.3 C 08/14/19 14:45 Pulse 71 08/14/19 18:30 Resp 16 08/14/19 14:45 BP 126/76 08/14/19 15:00 Pulse Ox 97 08/14/19 16:30 Weight - Most Recent: 84.822 kg Lab Results Last 24 Hours: Laboratory Results - last 24 hr 08/14/19 08/14/19 Range/Units 12:25 12:26 WBC 4.16 (3.98-10.04) K/mm3 RBC 4.35 (3.98-5.22) M/mm3 Hgb 11.8 (11.2-15.7) gm/dl Hct 35.8 (34.1-44.9) % MCV 82.3 (79.4-94.8) fl MCH 27.1 (25.6-32.2) pg MCHC 33.0 (32.2-35.5) g/dl RDW Std Deviation 43.0 (36.4-46.3) fL Plt Count 259 (182-369) K/mm3 MPV 10.6 (9.4-12.3) fl Neut % (Auto) 52.7 (34.0-71.1) % Lymph % (Auto) 38.9 (19.3-51.7) % [place] % (Auto) 7.5 (4.7-12.5) % Eos % (Auto) 0.7 (0.7-5.8) Baso % (Auto) 0.2 (0.1-1.2) % Neut # (Auto) 2.19 (1.56-6.13) K/mm3 Lymph # (Auto) 1.62 (1.18-3.74) K/mm3 [place] # (Auto) 0.31 (0.24-0.36) K/mm3 Eos # (Auto) 0.03 L (0.04-0.36) K/mm3 Baso # (Auto) 0.01 (0.01-0.08) K/mm3 RPR Non-reactive (NONREACTIVE) Med Orders - Current: Current Medications Acetaminophen (Tylenol) 650 mg PO Q6H PRN PRN Reason: Pain Last Admin: 08/14/19 20:12 Dose: 650 mg Diphenhydramine HCl (Benadryl) 25 mg IVPUSH Q6H PRN PRN Reason: pruritis Last Admin: 08/14/19 19:39 Dose: 25 mg Ephedrine Sulfate (Ephedrine Sulfate) 5 mg IVPUSH ASDIRECTED PRN PRN Reason: Hypotension Fentanyl (Sublimaze) 100 mcg EPIDUR Q3H PRN PRN Reason: Pain Last Admin: 08/14/19 14:32 Dose: 100 mcg Fentanyl/Bupivacaine HCl (Fentanyl/Bupivacaine/Ns 2 Mcg-0.125% 100 Ml) 100 ml EPIDUR ASDIRECTED PRN PRN Reason: Pain Last Admin: 08/14/19 22:06 Dose: 100 ml Lactated Ringer's (Ringers, Lactated) 1,000 mls @ 100 mls/hr IV ASDIRECTED BRYANT Last Admin: 08/14/19 19:42 Dose: 100 mls/hr Oxytocin/Lactated Ringer's (Pitocin In Lr 10 Units/1,000 Ml) 10 unit in 1,000 mls @ 100 mls/hr IV .CONTINUOUS BRYANT Penicillin G Potassium 2.5 (millunits/ Sodium Chloride) 100 mls @ 100 mls/hr IV Q4H BRYANT Last Admin: 08/14/19 20:14 Dose: 100 mls/hr Oxytocin/Lactated Ringer's (Pitocin In Lr 10 Units/1,000 Ml) 10 unit in 1,000 mls @ 12 mls/hr IV TITRATE BRYANT; Protocol Last Titration: 08/14/19 21:30 Dose: 10 munits/min, 60 mls/hr Ondansetron HCl (Zofran) 4 mg IVPUSH Q4H PRN PRN Reason: Nausea/Vomiting Last Admin: 08/14/19 18:01 Dose: 4 mg Sodium Chloride (Saline Flush) 10 ml FLUSH ASDIRECTED PRN PRN Reason: Keep Vein Open Discontinued Medications Acetaminophen (Tylenol) 650 mg PO Q6H PRN PRN Reason: Pain Last Admin: 08/14/19 16:05 Dose: 650 mg Penicillin G Potassium 5 (millunits/ Sodium Chloride) 100 mls @ 100 mls/hr IV ONETIME BRYANT Stop: 08/14/19 14:00 Last Admin: 08/14/19 12:58 Dose: 100 mls/hr - Exam General: Alert, Oriented, Cooperative, No Acute Distress HEENT: Pupils Equal, Mucous Membr. Moist/[place] Neck: Supple Lungs: Normal Respiratory Effort Cardiovascular: Regular Rate, Regular Rhythm GI/Abdominal Exam: Soft (Female) Exam: Enlarged Uterus, Vaginal Bleeding Back Exam: Normal Inspection, Full Range of Motion Extremities: Normal Inspection, No Pedal Edema Skin: Warm, Dry, Intact Neurological: No New Focal Deficit Psy/Mental Status: Alert, Normal Affect, Normal Mood - Problem List & Annotations (1) 40 weeks gestation of SNOMED Code(s): 88931632 Code(s): Z3A.40 - 40 WEEKS GESTATION OF Status: Acute Current Visit: Yes (2) Group B streptococcal bacteriuria SNOMED Code(s): 95926227 Code(s): R82.71 - BACTERIURIA Status: Acute Current Visit: Yes (3) Spontaneous vaginal delivery SNOMED Code(s): 739325198 Code(s): O80 - ENCOUNTER FOR FULL-TERM UNCOMPLICATED DELIVERY Status: Acute Current Visit: Yes (4) Mother currently breast-feeding SNOMED Code(s): 934553007 Code(s): Z39.1 - ENCOUNTER FOR CARE AND EXAMINATION OF LACTATING MOTHER Status: Acute Current Visit: Yes - Problem List Review Problem List Initiated/Reviewed/Updated: Yes - My Orders Last 24 Hours: My Active Orders 08/14/19 12:03 Activity as Tolerated [RC] PFP Communication Order [RC] ASDIRECTED Notify Provider [RC] PFP Notify Provider [RC] PRN Vital Signs [RC] PER UNIT ROUTINE Ondansetron [Zofran] 4 mg IVPUSH Q4H PRN Sodium Chloride 0.9% [Saline Flush] 10 ml FLUSH ASDIRECTED PRN Electronic Heart Tones Ext w TOCO [WOMSER] Routine Electronic Heart Tones Internal [WOMSER] Per Unit Routine Peripheral IV Insertion Adult [OM.PC] Routine Resuscitation Status Routine 08/14/19 12:04 Patient Status [ADT] Routine Peripheral IV Care [RC] Q2HR Pump Management, Intrathecal [RC] ASDIRECTED 08/14/19 12:15 Lactated Ringers [Ringers, Lactated] 1,000 ml IV ASDIRECTED Oxytocin/Lactated Ringers [Pitocin in LR 10 Units/1,000 ML] 10 unit in 1,000 ml IV .CONTINUOUS 08/14/19 15:30 Oxytocin/Lactated Ringers [Pitocin in LR 10 Units/1,000 ML] 10 unit in 1,000 ml IV TITRATE 08/14/19 16:30 Penicillin G Potassium [Pfizerpen] 2.5 millunits Sodium Chloride 0.9% [Normal Saline] 100 ml IV Q4H 08/14/19 19:54 Acetaminophen [Tylenol] 650 mg PO Q6H PRN 08/14/19 Dinner Regular Diet [DIET] 08/15/19 00:43 Patient Status Manage Transfer [TRANSFER] Routine - Assessment Assessment:: Term spontaneous vaginal delivery with second degree perineal tear. Plans to breastfeed - Plan Plan:: 1. Routine care. Received 3 doses of Pen G IV for GBS prophylaxis. No fever in labor. 2. support and education. 3. I will transfer care to Dr. Jim who is erosion control coordinator this weekend since I will be leaving on vacation later today. 4. Plan to see patient back for 6 week visit and will see her with baby prior to that.
[2019-08-15] MEDS ORDERED: Witch Hazel Medicated Pads 40/Jar TOP PRN (02:47)
[2019-08-15] MEDS ORDERED: Docusate Sodium 100 MG Cap PO PRN (02:47)
[2019-08-15] MEDS ORDERED: Simethicone 80 MG Tab.Chew PO PRN (02:47)
[2019-08-15] MEDS ORDERED: Benzocaine/Menthol 20%-0.5% Spray 56 GM Canister TOP PRN (04:28)
--- NOTE | 2019-08-15 08:43 | PCM48HPAN ---
Post Anesthesia Note - EVALUATION WITHIN 48HRS OF ANESTHETIC Vital Signs in Normal Range: Yes Patient Participated in Evaluation: Yes Respiratory Function Stable: Yes Airway Patent: Yes Cardiovascular Function Stable: Yes Hydration Status Stable: Yes Pain Control Satisfactory: Yes Nausea and Vomiting Control Satisfactory: Yes Mental Status Recovered: Yes Vital Signs: Last Vital Signs Temp 36.3 C 08/15/19 08:16 Pulse 70 08/15/19 08:16 Resp 14 08/15/19 08:16 BP 123/91 H 08/15/19 08:16 Pulse Ox 100 08/15/19 08:16
--- NOTE | 2019-08-15 09:33 | PCM.PN ---
- General Info Date of Service: 08/15/19 Admission Dx/Problem (Free Text): Spontaneous vaginal delivery Subjective Update: Patient reports changing her pad every couple of hours and it is soaked, denies passing clots. Denies dizziness or headache. Some discomfort in her back at epidural site. Denies calf pain. Appetite good. She is and worried that baby is not latching well, discussed tips for a good latch and encouraged her to reattach baby if she does not get a good latch. Functional Status: Reports: Pain Controlled, Tolerating Diet, Ambulating, Urinating - Review of Systems General: Reports: No Symptoms HEENT: Reports: No Symptoms Pulmonary: Reports: No Symptoms Cardiovascular: Reports: No Symptoms Gastrointestinal: Reports: No Symptoms Genitourinary: Reports: No Symptoms Musculoskeletal: Reports: Back Pain Skin: Reports: No Symptoms Neurological: Reports: No Symptoms Psychiatric: Reports: No Symptoms - Patient Data Vitals - Most Recent: Last Vital Signs Temp 36.3 C 08/15/19 08:16 Pulse 70 08/15/19 08:16 Resp 14 08/15/19 08:16 BP 123/91 H 08/15/19 08:16 Pulse Ox 100 08/15/19 08:16 Weight - Most Recent: 84.822 kg I&O - Last 24 Hours: Intake & Output 08/14/19 08/15/19 08/15/19 22:59 06:59 14:59 Intake Total 2320 Balance 2320 Lab Results Last 24 Hours: Laboratory Results - last 24 hr 08/14/19 08/14/19 08/15/19 Range/Units 12:25 12:26 05:26 WBC 4.16 6.53 (3.98-10.04) K/mm3 RBC 4.35 4.05 (3.98-5.22) M/mm3 Hgb 11.8 10.8 L (11.2-15.7) gm/dl Hct 35.8 33.3 L (34.1-44.9) % MCV 82.3 82.2 (79.4-94.8) fl MCH 27.1 26.7 (25.6-32.2) pg MCHC 33.0 32.4 (32.2-35.5) g/dl RDW Std Deviation 43.0 41.9 (36.4-46.3) fL Plt Count 259 224 (182-369) K/mm3 MPV 10.6 11.0 (9.4-12.3) fl Neut % (Auto) 52.7 (34.0-71.1) % Lymph % (Auto) 38.9 (19.3-51.7) % Emmons % (Auto) 7.5 (4.7-12.5) % Eos % (Auto) 0.7 (0.7-5.8) Baso % (Auto) 0.2 (0.1-1.2) % Neut # (Auto) 2.19 (1.56-6.13) K/mm3 Lymph # (Auto) 1.62 (1.18-3.74) K/mm3 Emmons # (Auto) 0.31 (0.24-0.36) K/mm3 Eos # (Auto) 0.03 L (0.04-0.36) K/mm3 Baso # (Auto) 0.01 (0.01-0.08) K/mm3 RPR Non-reactive (NONREACTIVE) Med Orders - Current: Current Medications Benzocaine/Menthol (Dermoplast Pain Relief [place]) 56 gm TOP ASDIRECTED PRN PRN Reason: Pain Last Admin: 08/15/19 04:41 Dose: 1 canister Docusate Sodium (Colace) 100 mg PO BID PRN PRN Reason: Constipation Ferrous Sulfate (Ferrous Sulfate) 324 mg PO BIDMEALS [facility] Lactated Ringer's (Ringers, Lactated) 1,000 mls @ 100 mls/hr IV ASDIRECTED [facility] Last Admin: 08/14/19 19:42 Dose: 100 mls/hr Ibuprofen (Motrin) 800 mg PO Q6H PRN PRN Reason: Mild pain or fever Prenat Multivit/[place]/Iron/Folic Ac ( Plus Iron) 1 each PO DAILY [facility] Simethicone (Simethicone) 80 mg PO Q4H PRN PRN Reason: Gas Sodium Chloride (Saline Flush) 10 ml FLUSH ASDIRECTED PRN PRN Reason: Keep Vein Open Witch Rea (Tucks) 1 pad TOP ASDIRECTED PRN PRN Reason: Perineal Comfort Measure Last Admin: 08/15/19 04:25 Dose: 1 tub Discontinued Medications Acetaminophen (Tylenol) 650 mg PO Q6H PRN PRN Reason: Pain Last Admin: 08/14/19 16:05 Dose: 650 mg Acetaminophen (Tylenol) 650 mg PO Q6H PRN PRN Reason: Pain Last Admin: 08/14/19 20:12 Dose: 650 mg Bupivacaine HCl (Sensorcaine-Mpf 0.25%) 10 ml .ROUTE .STK-MED ONE Stop: 08/14/19 00:01 Diphenhydramine HCl (Benadryl) 25 mg IVPUSH Q6H PRN PRN Reason: pruritis Last Admin: 08/14/19 19:39 Dose: 25 mg Ephedrine Sulfate (Ephedrine Sulfate) 5 mg IVPUSH ASDIRECTED PRN PRN Reason: Hypotension Fentanyl (Sublimaze) 100 mcg EPIDUR Q3H PRN PRN Reason: Pain Last Admin: 08/14/19 14:32 Dose: 100 mcg Fentanyl/Bupivacaine HCl (Fentanyl/Bupivacaine/Ns 2 Mcg-0.125% 100 Ml) 100 ml EPIDUR ASDIRECTED PRN PRN Reason: Pain Last Admin: 08/14/19 22:06 Dose: 100 ml Oxytocin/Lactated Ringer's (Pitocin In Lr 10 Units/1,000 Ml) 10 unit in 1,000 mls @ 100 mls/hr IV .CONTINUOUS [facility] Last Admin: 08/15/19 01:08 Dose: 500 mls/hr Penicillin G Potassium 5 (millunits/ Sodium Chloride) 100 mls @ 100 mls/hr IV ONETIME [facility] Stop: 08/14/19 14:00 Last Admin: 08/14/19 12:58 Dose: 100 mls/hr Penicillin G Potassium 2.5 (millunits/ Sodium Chloride) 100 mls @ 100 mls/hr IV Q4H [facility] Last Admin: 08/14/19 20:14 Dose: 100 mls/hr Oxytocin/Lactated Ringer's (Pitocin In Lr 10 Units/1,000 Ml) 10 unit in 1,000 mls @ 12 mls/hr IV TITRATE [facility]; Protocol Last Titration: 08/14/19 21:30 Dose: 10 munits/min, 60 mls/hr Ondansetron HCl (Zofran) 4 mg IVPUSH Q4H PRN PRN Reason: Nausea/Vomiting Last Admin: 08/14/19 18:01 Dose: 4 mg - Exam General: Alert, Oriented, Cooperative, No Acute Distress HEENT: Pupils Reactive, Mucous Membr. Moist/[place] Neck: Supple Lungs: Normal Respiratory Effort Cardiovascular: Regular Rate, Regular Rhythm GI/Abdominal Exam: Soft, No Distention (Female) Exam: Enlarged Uterus (Fundus firm, 2 fingers below U), Vaginal Bleeding Back Exam: Normal Inspection, Other (Mild tenderness to palpation at epidural site) Extremities: Normal Inspection, Non-Tender, No Pedal Edema Skin: Warm, Dry, Intact Wound/Incisions: Healing Well Neurological: No New Focal Deficit Psy/Mental Status: Alert, Normal Affect, Normal Mood Sepsis Event Note - Evaluation Sepsis Screening Result: No Definite Risk - Focused Exam Vital Signs: Vital Signs Temp Pulse Resp BP Pulse Ox 08/15/19 08:16 36.3 C 70 14 123/91 H 100 08/15/19 04:21 36.8 C 70 16 117/67 99 Date Exam was Performed: 08/15/19 Time Exam was Performed: 09:28 - Problem List & Annotations (1) 40 weeks gestation of SNOMED Code(s): 58335186 Code(s): Z3A.40 - 40 WEEKS GESTATION OF Status: Acute Current Visit: Yes (2) Group B streptococcal bacteriuria SNOMED Code(s): 06913059 Code(s): R82.71 - BACTERIURIA Status: Acute Current Visit: Yes (3) Spontaneous vaginal delivery SNOMED Code(s): 685739167 Code(s): O80 - ENCOUNTER FOR FULL-TERM UNCOMPLICATED DELIVERY Status: Acute Current Visit: Yes (4) Mother currently breast-feeding SNOMED Code(s): 998032939 Code(s): Z39.1 - ENCOUNTER FOR CARE AND EXAMINATION OF LACTATING MOTHER Status: Acute Current Visit: Yes - Problem List Review Problem List Initiated/Reviewed/Updated: Yes - My Orders Last 24 Hours: My Active Orders 08/14/19 12:03 Sodium Chloride 0.9% [Saline Flush] 10 ml FLUSH ASDIRECTED PRN Resuscitation Status Routine 08/14/19 12:15 Lactated Ringers [Ringers, Lactated] 1,000 ml IV ASDIRECTED 08/14/19 Dinner Regular Diet [DIET] 08/15/19 02:47 Patient Status [ADT] Routine Activity as Tolerated [RC] PER UNIT ROUTINE May Shower [RC] ASDIRECTED Up ad Allegra [RC] ASDIRECTED Vital Signs [RC] 21,03,09,15 Docusate Sodium [Colace] 100 mg PO BID PRN Ibuprofen [Motrin] 800 mg PO Q6H PRN Simethicone 80 mg PO Q4H PRN witch Rea [Tucks] 1 pad TOP ASDIRECTED PRN Assess Lochia [WOMSER] Per Unit Routine Assess Uterine Involution [WOMSER] Per Unit Routine Breast Pump [WOMSER] Per Unit Routine Heat Therapy [OM.PC] PRN Perineal Care [OM.PC] Per Unit Routine Peripheral IV Discontinue [OM.PC] Routine Sitz Bath [OM.PC] Per Unit Routine 08/15/19 04:28 Benzocaine/Menthol [Dermoplast Pain Relief [place]] 56 gm TOP ASDIRECTED PRN 08/15/19 07:00 Ferrous Sulfate 324 mg PO BIDMEALS 08/15/19 09:00 Vit with Ca/FA/Iron [ Plus Iron] 1 each PO DAILY 08/16/19 02:47 Heat Therapy [OM.PC] PRN - Assessment Assessment:: Term spontaneous vaginal delivery with second degree perineal tear. Plans to breastfeed - Plan Plan:: 1. Routine care. Received 3 doses of Pen G IV for GBS prophylaxis. No fever in labor. 2. support and education. 3. I will transfer care to Dr. Jim who is bi application developer this weekend since I will be leaving on vacation later today. 4. Plan to see patient back for 6 week visit and will see her with baby prior to that.
[2019-08-15] MEDS: Prenatal Multivitamin with Calcium/Folic Acid/Iron Tab PO SCH (10:00)
[2019-08-15] MEDS: Ibuprofen 800 MG Tab PO PRN (18:25)
[2019-08-15] MEDS: Ferrous Sulfate 324 MG Tab.EC PO SCH (18:27)
[2019-08-16] MEDS: Ibuprofen 800 MG Tab PO PRN (01:51)
[2019-08-16] MEDS: Ferrous Sulfate 324 MG Tab.EC PO SCH ×3 (03:14→17:13)
--- NOTE | 2019-08-16 07:08 | PCM.PNPP ---
- General Info Date of Service: 08/16/19 Functional Status: Reports: Pain Controlled - Review of Systems General: Reports: No Symptoms HEENT: Reports: No Symptoms Pulmonary: Reports: No Symptoms Cardiovascular: Reports: No Symptoms Gastrointestinal: Reports: No Symptoms Genitourinary: Reports: No Symptoms Musculoskeletal: Reports: No Symptoms Skin: Reports: No Symptoms Neurological: Reports: No Symptoms Psychiatric: Reports: No Symptoms - General Info Date of Service: 08/16/19 - Patient Data Vital Signs - Most Recent: Last Vital Signs Temp 36.7 C 08/16/19 01:54 Pulse 62 08/16/19 01:54 Resp 18 08/16/19 01:54 BP 129/76 08/16/19 01:54 Pulse Ox 100 08/16/19 01:54 Weight - Most Recent: 84.822 kg I&O - Last 24 Hours: Intake & Output 08/15/19 08/16/19 08/16/19 22:59 06:59 14:59 Intake Total 420 Balance 420 Med Orders - Current: Current Medications Benzocaine/Menthol (Dermoplast Pain Relief [place]) 56 gm TOP ASDIRECTED PRN PRN Reason: Pain Last Admin: 08/15/19 04:41 Dose: 1 canister Docusate Sodium (Colace) 100 mg PO BID PRN PRN Reason: Constipation Ferrous Sulfate (Ferrous Sulfate) 324 mg PO BIDMEALS [facility] Last Admin: 08/16/19 03:14 Dose: Not Given Lactated Ringer's (Ringers, Lactated) 1,000 mls @ 100 mls/hr IV ASDIRECTED [facility] Last Admin: 08/14/19 19:42 Dose: 100 mls/hr Ibuprofen (Motrin) 800 mg PO Q6H PRN PRN Reason: Mild pain or fever Last Admin: 08/16/19 01:51 Dose: 800 mg Prenat Multivit/[place]/Iron/Folic Ac ( Plus Iron) 1 each PO DAILY [facility] Last Admin: 08/15/19 10:00 Dose: 1 each Simethicone (Simethicone) 80 mg PO Q4H PRN PRN Reason: Gas Sodium Chloride (Saline Flush) 10 ml FLUSH ASDIRECTED PRN PRN Reason: Keep Vein Open Witch Hannah (Tucks) 1 pad TOP ASDIRECTED PRN PRN Reason: Perineal Comfort Measure Last Admin: 08/15/19 04:25 Dose: 1 tub Discontinued Medications Acetaminophen (Tylenol) 650 mg PO Q6H PRN PRN Reason: Pain Last Admin: 08/14/19 16:05 Dose: 650 mg Acetaminophen (Tylenol) 650 mg PO Q6H PRN PRN Reason: Pain Last Admin: 08/14/19 20:12 Dose: 650 mg Bupivacaine HCl (Sensorcaine-Mpf 0.25%) 10 ml .ROUTE .STK-MED ONE Stop: 08/14/19 00:01 Diphenhydramine HCl (Benadryl) 25 mg IVPUSH Q6H PRN PRN Reason: pruritis Last Admin: 08/14/19 19:39 Dose: 25 mg Ephedrine Sulfate (Ephedrine Sulfate) 5 mg IVPUSH ASDIRECTED PRN PRN Reason: Hypotension Fentanyl (Sublimaze) 100 mcg EPIDUR Q3H PRN PRN Reason: Pain Last Admin: 08/14/19 14:32 Dose: 100 mcg Fentanyl/Bupivacaine HCl (Fentanyl/Bupivacaine/Ns 2 Mcg-0.125% 100 Ml) 100 ml EPIDUR ASDIRECTED PRN PRN Reason: Pain Last Admin: 08/14/19 22:06 Dose: 100 ml Oxytocin/Lactated Ringer's (Pitocin In Lr 10 Units/1,000 Ml) 10 unit in 1,000 mls @ 100 mls/hr IV .CONTINUOUS [facility] Last Admin: 08/15/19 01:08 Dose: 500 mls/hr Penicillin G Potassium 5 (millunits/ Sodium Chloride) 100 mls @ 100 mls/hr IV ONETIME [facility] Stop: 08/14/19 14:00 Last Admin: 08/14/19 12:58 Dose: 100 mls/hr Penicillin G Potassium 2.5 (millunits/ Sodium Chloride) 100 mls @ 100 mls/hr IV Q4H [facility] Last Admin: 08/14/19 20:14 Dose: 100 mls/hr Oxytocin/Lactated Ringer's (Pitocin In Lr 10 Units/1,000 Ml) 10 unit in 1,000 mls @ 12 mls/hr IV TITRATE [facility]; Protocol Last Titration: 08/14/19 21:30 Dose: 10 munits/min, 60 mls/hr Ondansetron HCl (Zofran) 4 mg IVPUSH Q4H PRN PRN Reason: Nausea/Vomiting Last Admin: 08/14/19 18:01 Dose: 4 mg - Interaction Support Person: - Recovery Exam Fundal Tone: Firm Fundal Level: 1 Fingerbreadths Below Umbilicus Fundal Placement: Midline Lochia Amount: Small Lochia Color: Rubra/Red Perineum Description: Other (see below) Other Perinuem Description: 2 degree repaired + rt labial tear repaired Episiotomy/Laceration: Approximated Bladder Status: Voiding Urinary Elimination: Voided - Exam General: Alert, Oriented HEENT: Pupils Equal Neck: Supple Lungs: Normal Respiratory Effort Cardiovascular: Regular Rate, Regular Rhythm GI/Abdominal Exam: Normal Bowel Sounds, Soft, Non-Tender, No Organomegaly, No Distention, No Abnormal Bruit, No Mass Extremities: Normal Inspection, Normal Range of Motion, Non-Tender, No Pedal Edema, Normal Capillary Refill Skin: Warm, Dry, Intact Neurological: No New Focal Deficit Psy/Mental Status: Alert, Normal Affect, Normal Mood - Problem List Review Problem List Initiated/Reviewed/Updated: Yes - Assessment Assessment:: Term spontaneous vaginal delivery with second degree perineal tear. Plans to breastfeed - that is going well Likely home tomorrow - Plan Plan:: 1. Routine care. Received 3 doses of Pen G IV for GBS prophylaxis. No fever in labor. 2. support and education. 3. Likely home tomorrow
[2019-08-16] MEDS: Prenatal Multivitamin with Calcium/Folic Acid/Iron Tab PO SCH (17:13)
[2019-08-17] MEDS: Ferrous Sulfate 324 MG Tab.EC PO SCH (07:15)
[2019-08-17] MEDS: Penicillin G Potassium 2.5 MILLUNITS in Sodium Chloride 0.9% 100 ML IV SCH (07:16)
--- NOTE | 2019-08-17 08:01 | PCM.DCSUM1 ---
Discharge Summary - Hospital Course Diagnosis: Stroke: No - Discharge Data Discharge Date: 08/17/19 Discharge Disposition: Home, Self-Care 01 Condition: Good - Referral to Home Health Primary Care Physician: Giulia Mcmullen MD - Patient Summary/Data Hospital Course: Term delivery. Uncomplicated - Patient Instructions Diet: Usual Diet as Tolerated Activity: No Strenuous Activities Activity, Other: pelvic rest Driving: May Drive Today Showering/Bathing: May Shower Notify Provider of: Fever, Increased Pain, Swelling and Redness, Drainage, Nausea and/or Vomiting - Discharge Plan *PRESCRIPTION DRUG MONITORING PROGRAM REVIEWED*: No *COPY OF PRESCRIPTION DRUG MONITORING REPORT IN PATIENT FOZIA: No Home Medications: Home Meds [id number]/Iron Fumarate/FA/DSS [ 19 Tablet] 1 tab PO DAILY 08/14/19 [ History] Referrals: Giulia Mcmullen MD [Primary Care Provider] - (6 weeks) - Discharge Summary/Plan Comment DC Time >30 min.: No - General Info Date of Service: 08/17/19 Functional Status: Reports: Pain Controlled - Review of Systems General: Reports: No Symptoms HEENT: Reports: No Symptoms Pulmonary: Reports: No Symptoms Cardiovascular: Reports: No Symptoms Gastrointestinal: Reports: No Symptoms Genitourinary: Reports: No Symptoms Musculoskeletal: Reports: No Symptoms Skin: Reports: No Symptoms Neurological: Reports: No Symptoms Psychiatric: Reports: No Symptoms - Patient Data Vitals - Most Recent: Last Vital Signs Temp 36.7 C 08/17/19 03:55 Pulse 84 08/17/19 03:55 Resp 15 08/17/19 03:55 BP 96/76 08/17/19 03:55 Pulse Ox 99 08/17/19 03:55 Weight - Most Recent: 84.822 kg I&O - Last 24 hours: Intake & Output 08/16/19 08/17/19 08/17/19 21:59 06:59 14:59 Intake Total Balance Med Orders - Current: Current Medications Benzocaine/Menthol (Dermoplast Pain Relief [place]) 56 gm TOP ASDIRECTED PRN PRN Reason: Pain Last Admin: 08/15/19 04:41 Dose: 1 canister Docusate Sodium (Colace) 100 mg PO BID PRN PRN Reason: Constipation Ferrous Sulfate (Ferrous Sulfate) 324 mg PO BIDMEALS [facility] Last Admin: 08/17/19 07:15 Dose: 324 mg Lactated Ringer's (Ringers, Lactated) 1,000 mls @ 100 mls/hr IV ASDIRECTED [facility] Last Admin: 08/14/19 19:42 Dose: 100 mls/hr Ibuprofen (Motrin) 800 mg PO Q6H PRN PRN Reason: Mild pain or fever Last Admin: 08/16/19 01:51 Dose: 800 mg Prenat Multivit/Developer Evangelist/Iron/Folic Ac ( Plus Iron) 1 each PO DAILY [facility] Last Admin: 08/16/19 17:13 Dose: 1 each Simethicone (Simethicone) 80 mg PO Q4H PRN PRN Reason: Gas Sodium Chloride (Saline Flush) 10 ml FLUSH ASDIRECTED PRN PRN Reason: Keep Vein Open Witric Young (Tucks) 1 pad TOP ASDIRECTED PRN PRN Reason: Perineal Comfort Measure Last Admin: 08/15/19 04:25 Dose: 1 tub Discontinued Medications Acetaminophen (Tylenol) 650 mg PO Q6H PRN PRN Reason: Pain Last Admin: 08/14/19 16:05 Dose: 650 mg Acetaminophen (Tylenol) 650 mg PO Q6H PRN PRN Reason: Pain Last Admin: 08/14/19 20:12 Dose: 650 mg Bupivacaine HCl (Sensorcaine-Mpf 0.25%) 10 ml .ROUTE .[facility]-MED ONE Stop: 08/14/19 00:01 Diphenhydramine HCl (Benadryl) 25 mg IVPUSH Q6H PRN PRN Reason: pruritis Last Admin: 08/14/19 19:39 Dose: 25 mg Ephedrine Sulfate (Ephedrine Sulfate) 5 mg IVPUSH ASDIRECTED PRN PRN Reason: Hypotension Fentanyl (Sublimaze) 100 mcg EPIDUR Q3H PRN PRN Reason: Pain Last Admin: 08/14/19 14:32 Dose: 100 mcg Fentanyl/Bupivacaine HCl (Fentanyl/Bupivacaine/Ns 2 Mcg-0.125% 100 Ml) 100 ml EPIDUR ASDIRECTED PRN PRN Reason: Pain Last Admin: 08/14/19 22:06 Dose: 100 ml Oxytocin/Lactated Ringer's (Pitocin In Lr 10 Units/1,000 Ml) 10 unit in 1,000 mls @ 100 mls/hr IV .CONTINUOUS [facility] Last Admin: 08/15/19 01:08 Dose: 500 mls/hr Penicillin G Potassium 5 (millunits/ Sodium Chloride) 100 mls @ 100 mls/hr IV ONETIME [facility] Stop: 08/14/19 14:00 Last Admin: 08/14/19 12:58 Dose: 100 mls/hr Penicillin G Potassium 2.5 (millunits/ Sodium Chloride) 100 mls @ 100 mls/hr IV Q4H [facility] Last Admin: 08/17/19 07:16 Dose: Not Given Oxytocin/Lactated Ringer's (Pitocin In Lr 10 Units/1,000 Ml) 10 unit in 1,000 mls @ 12 mls/hr IV TITRATE [facility]; Protocol Last Titration: 08/14/19 21:30 Dose: 10 munits/min, 60 mls/hr Ondansetron HCl (Zofran) 4 mg IVPUSH Q4H PRN PRN Reason: Nausea/Vomiting Last Admin: 08/14/19 18:01 Dose: 4 mg - Exam General: Reports: Alert, Oriented HEENT: Reports: Pupils Equal, Pupils Reactive, EOMI, Mucous Membr. Moist/[place] Neck: Reports: Supple Lungs: Reports: Clear to Auscultation, Normal Respiratory Effort Cardiovascular: Reports: Regular Rate, Regular Rhythm GI/Abdominal Exam: Normal Bowel Sounds, Soft, Non-Tender, No Organomegaly, No Distention, No Mass Rectal (Female) Exam: Normal Exam, Normal Rectal Tone Back Exam: Reports: Normal Inspection, Full Range of Motion Extremities: Normal Inspection, Normal Range of Motion, Non-Tender, No Pedal Edema, Normal Capillary Refill Skin: Reports: Warm, Dry, Intact Wound/Incisions: Reports: Healing Well Neurological: Reports: No New Focal Deficit Psy/Mental Status: Reports: Alert, Normal Affect, Normal Mood
== END 2019-08-17 09:10 | disposition home or self-care (01) | DRG 560 ==
LOC: JD.OB 11:05 → JD.OBCHECK 11:05 → JD.OB 12:04 → OBSVTOIN 08-15 00:03
PROVIDERS: ADMIT Family Medicine; ATTEND Family Medicine
PROC: 10E0XZZ Delivery of Products of Conception, External Approach (ICD-10-PCS; principal; 2019-08-15)
PROC: 10907ZC Drainage of Amniotic Fluid, Therapeutic from Products of Conception, Via Natural or Artificial Opening (ICD-10-PCS; 2019-08-15)
PROC: 0KQM0ZZ Repair Perineum Muscle, Open Approach (ICD-10-PCS; 2019-08-15)
PROC: 3E0R3BZ Introduction of Anesthetic Agent into Spinal Canal, Percutaneous Approach (ICD-10-PCS; 2019-08-15)
DX: O48.0 Post-term pregnancy (principal); Z3A.40 40 weeks gestation of pregnancy; O99.824 Streptococcus B carrier state complicating childbirth; O70.1 Second degree perineal laceration during delivery; R82.71 Bacteriuria; Z37.0 Single live birth; Z79.899 Other long term (current) drug therapy
CPT/HCPCS: 36415; 51702; 59025; 59409; 85025; 85027; 86592; A9270-GY; J1200; J2405; J2540; J2590; J3010; J3490; J7050; J7120

== ENCOUNTER 2019-12-12 18:25 | Emergency (ER) | payer BC ==
[2019-12-12] MEDS ORDERED: Sodium Chloride 0.9% 10 ML Syringe FLUSH PRN (18:39)
[2019-12-12] MEDS ORDERED: Alum Hydrox/Mag Hydrox/Simeth 30 ML, Lidocaine 2% 15 ML PO ONE ×2 (18:40)
--- NOTE | 2019-12-12 18:43 | EDM.PDOC ---
ED HPI GENERAL MEDICAL PROBLEM - General Chief Complaint: Abdominal Pain Stated Complaint: ABDOMINAL PAIN Time Seen by Provider: 12/12/19 18:40 Source of Information: Reports: Patient History Limitations: Reports: No Limitations - History of Present Illness INITIAL COMMENTS - FREE TEXT/NARRATIVE: Patient is an unfortunate 29-year-old black female who presents emergency department today with complaint of epigastric abdominal pain. Patient reports that she has been having symptoms off and on for approximately 1 month and they have worsened since yesterday. she reports that the pain gets worse with eating no fever no chills positive nausea no vomiting no chest pain no shortness of breath no diarrhea no vaginal discharge no dysuria no frequency no urgency Upper Abdomen Pain Score (Numeric/FACES): 0 - Related Data Allergies Allergy/AdvReac Type Severity Reaction Status Date / Time No Known Allergies Allergy Verified 08/14/19 12:03 Home Meds: Home Meds Prenat 115/Iron Fum/Folic/Dss [ 19 Tablet] 1 tab PO DAILY 08/14/19 [History] Past Medical History - Past Health History Medical/Surgical History: Denies Medical/Surgical History Gastrointestinal History: Reports: GERD 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 Denies: Nausea, Vomiting : Denies: Discharge, Dysuria, Frequency, Urgency, Urinary Retention ED EXAM, GI/ABD - Physical Exam Exam: See Below Exam Limited By: No Limitations General Appearance: Alert, WD/WN, Mild Distress Nose: Normal Inspection, Normal Mucosa, No Blood Throat/Mouth: Normal Inspection, Normal Lips, Normal Teeth, Normal Gums, Normal Oropharynx, Normal Voice, No Airway Compromise Head: Atraumatic, Normocephalic Neck: Normal Inspection, Supple, Non-Tender, Full Range of Motion Respiratory/Chest: No Respiratory Distress, Lungs Clear, Normal Breath Sounds, No Accessory Muscle Use, Chest Non-Tender Cardiovascular: Normal Peripheral Pulses, Regular Rate, Rhythm, No Edema, No Gallop, No JVD, No Murmur, No Rub GI/Abdominal Exam: Normal Bowel Sounds, Soft, Tender (Mild epigastric tender ness) Back Exam: Normal Inspection, Full Range of Motion, NT Extremities: Normal Inspection, Normal Range of Motion, Non-Tender, Normal Capillary Refill, No Pedal Edema Neurological: Alert, Oriented Skin Exam: Warm, Dry, Intact Course - Vital Signs Last Recorded V/S: Last Vital Signs Temp 97.2 F 12/12/19 18:52 Pulse 81 12/12/19 18:52 Resp 20 12/12/19 18:52 BP 99/72 12/12/19 18:52 Pulse Ox 100 12/12/19 18:52 - Orders/Labs/Meds Orders: Active Orders 24 hr Category Date Time Status Sodium Chloride 0.9% [Saline Flush] Med 12/12/19 18:39 Active 10 ml FLUSH ASDIRECTED PRN Saline Lock Insert [OM.PC] Stat Oth 12/12/19 18:40 Ordered Medication Orders Sodium Chloride (Saline Flush) 10 ml FLUSH ASDIRECTED PRN PRN Reason: Keep Vein Open Last Admin: 12/12/19 18:55 Dose: 10 ml Documented by: WILDER Labs: Laboratory Tests 12/12/19 12/12/19 12/12/19 Range/Units 18:45 18:45 18:45 WBC 3.94 L (3.98-10.04) K/mm3 RBC 4.55 (3.98-5.22) M/mm3 Hgb 12.0 (11.2-15.7) gm/dl Hct 37.1 (34.1-44.9) % MCV 81.5 (79.4-94.8) fl MCH 26.4 (25.6-32.2) pg MCHC 32.3 (32.2-35.5) g/dl RDW Std Deviation 43.2 (36.4-46.3) fL Plt Count 314 (182-369) K/mm3 MPV 9.7 (9.4-12.3) fl Neut % (Auto) 31.2 L (34.0-71.1) % Lymph % (Auto) 60.9 H (19.3-51.7) % [place] % (Auto) 5.8 (4.7-12.5) % Eos % (Auto) 1.8 (0.7-5.8) Baso % (Auto) 0.3 (0.1-1.2) % Neut # (Auto) 1.23 L (1.56-6.13) K/mm3 Lymph # (Auto) 2.40 (1.18-3.74) K/mm3 [place] # (Auto) 0.23 L (0.24-0.36) K/mm3 Eos # (Auto) 0.07 (0.04-0.36) K/mm3 Baso # (Auto) 0.01 (0.01-0.08) K/mm3 Sodium 140 (136-145) mEq/L Potassium 3.9 (3.5-5.1) mEq/L Chloride 104 (98-107) mEq/L Carbon Dioxide 27 (21-32) mEq/L Anion Gap 12.9 (5-15) BUN 10 (7-18) mg/dL Creatinine 1.0 (0.55-1.02) mg/dL Est Cr Clr Drug Dosing 91.38 mL/min Estimated GFR (MDRD) > 60 (>60) mL/min BUN/Creatinine Ratio 10.0 L (14-18) Glucose 79 (74-106) mg/dL Calcium 9.1 (8.5-10.1) mg/dL Total Bilirubin 0.2 (0.2-1.0) mg/dL AST 16 (15-37) U/L ALT 32 (14-59) U/L Alkaline Phosphatase 80 (46-116) U/L Total Protein 7.7 (6.4-8.2) g/dl Albumin 4.1 (3.4-5.0) g/dl Globulin 3.6 gm/dL Albumin/Globulin Ratio 1.1 (1-2) Lipase 53 L (73-393) U/L HCG, Qual Negative (NEGATIVE) Urine Color (Yellow) Urine Appearance (Clear) Urine pH (5.0-8.0) Ur Specific [place] (1.005-1.030) Urine Protein (Negative) Urine Glucose (UA) (Negative) Urine Ketones (Negative) Urine Occult Blood (Negative) Urine Nitrite (Negative) Urine Bilirubin (Negative) Urine Urobilinogen (0.2-1.0) Ur Leukocyte Esterase (Negative) 12/12/19 Range/Units 19:06 WBC (3.98-10.04) K/mm3 RBC (3.98-5.22) M/mm3 Hgb (11.2-15.7) gm/dl Hct (34.1-44.9) % MCV (79.4-94.8) fl MCH (25.6-32.2) pg MCHC (32.2-35.5) g/dl RDW Std Deviation (36.4-46.3) fL Plt Count (182-369) K/mm3 MPV (9.4-12.3) fl Neut % (Auto) (34.0-71.1) % Lymph % (Auto) (19.3-51.7) % [place] % (Auto) (4.7-12.5) % Eos % (Auto) (0.7-5.8) Baso % (Auto) (0.1-1.2) % Neut # (Auto) (1.56-6.13) K/mm3 Lymph # (Auto) (1.18-3.74) K/mm3 [place] # (Auto) (0.24-0.36) K/mm3 Eos # (Auto) (0.04-0.36) K/mm3 Baso # (Auto) (0.01-0.08) K/mm3 Sodium (136-145) mEq/L Potassium (3.5-5.1) mEq/L Chloride (98-107) mEq/L Carbon Dioxide (21-32) mEq/L Anion Gap (5-15) BUN (7-18) mg/dL Creatinine (0.55-1.02) mg/dL Est Cr Clr Drug Dosing mL/min Estimated GFR (MDRD) (>60) mL/min BUN/Creatinine Ratio (14-18) Glucose (74-106) mg/dL Calcium (8.5-10.1) mg/dL Total Bilirubin (0.2-1.0) mg/dL AST (15-37) U/L ALT (14-59) U/L Alkaline Phosphatase (46-116) U/L Total Protein (6.4-8.2) g/dl Albumin (3.4-5.0) g/dl Globulin gm/dL Albumin/Globulin Ratio (1-2) Lipase (73-393) U/L HCG, Qual (NEGATIVE) Urine Color Yellow (Yellow) Urine Appearance Clear (Clear) Urine pH 6.5 (5.0-8.0) Ur Specific [place] 1.025 (1.005-1.030) Urine Protein Negative (Negative) Urine Glucose (UA) Negative (Negative) Urine Ketones Negative (Negative) Urine Occult Blood Negative (Negative) Urine Nitrite Negative (Negative) Urine Bilirubin Negative (Negative) Urine Urobilinogen 0.2 (0.2-1.0) Ur Leukocyte Esterase Negative (Negative) Meds: Medications Generic Name Dose Route Start Last Admin Trade Name Freq PRN Reason Stop Dose Admin Sodium Chloride 10 ml 12/12/19 18:39 12/12/19 18:55 Saline Flush FLUSH 10 ml ASDIRECTED PRN Administration Keep Vein Open Discontinued Medications Generic Name Dose Route Start Last Admin Trade Name Freq PRN Reason Stop Dose Admin Al Hydroxide/Mg Hydroxide 30 0 ml 12/12/19 18:40 12/12/19 18:50 ml/ Lidocaine HCl 15 ml PO 12/12/19 18:41 45 ml ONETIME ONE Administration - Re-Assessments/Exams Free Text/Narrative Re-Assessment/Exam: 12/12/19 19:33 Today is reassuring patient's pain is improved with GI cocktail but not resolved will discharge to home and have patient take Prilosec OTC daily for 1 month and Tums as needed for pain and have patient return for any worsening condition Departure - Departure Time of Disposition: 19:34 Disposition: Home, Self-Care 01 Condition: Good Clinical Impression: GERD (gastroesophageal reflux disease) Qualifiers: Esophagitis presence: without esophagitis Qualified Code(s): K21.9 - Gastro- esophageal reflux disease without esophagitis - Discharge Information Instructions: Gastroesophageal Reflux Disease, Adult, [id number] Referrals: Giulia Mcmullen MD [Primary Care Provider] - Forms: ED Department Discharge Additional Instructions: Home, rest, Prilosec OTC daily for 1 month, Tums as needed for pain, return as needed for worsening condition Sepsis Event Note (ED) - Focused Exam Vital Signs: Vital Signs Temp Pulse Resp BP Pulse Ox 12/12/19 18:52 97.2 F 81 20 99/72 100 - My Orders Last 24 Hours: My Active Orders 12/12/19 18:39 Sodium Chloride 0.9% [Saline Flush] 10 ml FLUSH ASDIRECTED PRN 12/12/19 18:40 Saline Lock Insert [OM.PC] Stat - Assessment/Plan Last 24 Hours: My Active Orders 12/12/19 18:39 Sodium Chloride 0.9% [Saline Flush] 10 ml FLUSH ASDIRECTED PRN 12/12/19 18:40 Saline Lock Insert [OM.PC] Stat
== END 2019-12-12 19:51 | disposition home or self-care (01) ==
LOC: JD.ED 18:25
DX: K21.9 Gastro-esophageal reflux disease without esophagitis (principal)
CPT/HCPCS: 36415; 80053; 81003; 83690; 84703; 85025; 99284; A9270; 99283

== ENCOUNTER 2020-03-04 10:10 | Emergency (ER) | payer BC ==
[2020-03-04] MEDS ORDERED: Alum Hydrox/Mag Hydrox/Simeth 30 ML, Lidocaine 2% 15 ML PO ONE ×2 (12:04)
[2020-03-04] MEDS ORDERED: Dicyclomine 10 MG Cap PO ONE (12:08)
--- NOTE | 2020-03-04 12:43 | EDM.PDOC ---
ED HPI GENERAL MEDICAL PROBLEM - General Chief Complaint: Abdominal Pain Stated Complaint: ABDOMINAL PAIN Time Seen by Provider: 03/04/20 10:55 Source of Information: Reports: Patient History Limitations: Reports: No Limitations - History of Present Illness INITIAL COMMENTS - FREE TEXT/NARRATIVE: She is a 29-year-old female presenting to the emergency department with complaints of an episode of intense epigastric pain which lasted for about 45 minutes. Pain resolved on the way to the ER. She states she also had a large white bowel movement, however she did have a barium swallow study done yesterday so this is the likely cause of this. Per patient's report, she has had problems with intermittent epigastric pain over the last 2 years. She also reports feeling there is something stuck in her throat for the last 2 days. This is the reason for the barium swallow study that was completed. She has seen her primary care provider, Dr. Mcmullen as well as Orlando Coleman NP in the clinic with these complaints. She was on omeprazole at one point, however she states it made her throat feel tight so she stopped this. She was recently started on Protonix in the clinic, however she has not taken this medication as she did not want to mix it with her azithromycin she was taking for an eye infection. She denies any diarrhea, nausea or vomiting however, does complain of intermittent heartburn. The pain comes and goes and seems to be worse with eating. Pain is improved by taking [id number] antacids. 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: Musculoskeletal History: Reports: None Neurological History: Reports: None Psychiatric History: Reports: None Endocrine/Metabolic History: Reports: None Hematologic History: Reports: None Immunologic History: Reports: None Oncologic (Cancer) History: Reports: None Dermatologic History: Reports: None - Infectious Disease History Infectious Disease History: Reports: None - Past Surgical History Head Surgeries/Procedures: Reports: None Other Female Surgeries/Procedures: vag delivery August 15 2019 Social & Family History - Family History Family Medical History: Noncontributory - Tobacco Use Smoking Status *Q: Never Smoker - Caffeine Use Caffeine Use: Reports: None - Recreational Drug Use Recreational Drug Use: No - Living Situation & Occupation Living situation: Reports: , with Family (Mother (temporarily), daughter) 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 Denies: Fever, Chills HEENT: Reports: No Symptoms Respiratory: Reports: No Symptoms Cardiovascular: Reports: No Symptoms Endocrine: Reports: No Symptoms GI/Abdominal: Reports: Abdominal Pain (epigastric). Denies: Diarrhea, Nausea, Vomiting : Reports: No Symptoms Musculoskeletal: Reports: No Symptoms Skin: Reports: No Symptoms Neurological: Reports: No Symptoms Psychiatric: Reports: No Symptoms Hematologic/Lymphatic: Reports: No Symptoms Immunologic: Reports: No Symptoms ED EXAM, GI/ABD - Physical Exam Exam: See Below General Appearance: Alert, WD/WN, No Apparent Distress Respiratory/Chest: No Respiratory Distress, Lungs Clear, Normal Breath Sounds, No Accessory Muscle Use, Chest Non-Tender Cardiovascular: Normal Peripheral Pulses, Regular Rate, Rhythm, No Edema, No Gallop, No JVD, No Murmur, No Rub GI/Abdominal Exam: Normal Bowel Sounds, Soft, No Organomegaly, No Distention, No Abnormal Bruit, No Mass, Pelvis Stable, Tender (mild epigastric) Neurological: Alert, Oriented, CN II-XII Intact, Normal Cognition, Normal Gait, Normal Reflexes, No Motor/Sensory Deficits Psychiatric: Normal Affect, Normal Mood Skin Exam: Warm, Dry, Intact, Normal Color, No Rash Course - Vital Signs Last Recorded V/S: Last Vital Signs Temp 97.3 F 03/04/20 10:27 Pulse 80 03/04/20 10:27 Resp 16 03/04/20 10:27 BP 114/61 03/04/20 10:27 Pulse Ox 100 03/04/20 10:27 - Orders/Labs/Meds Meds: Medications Discontinued Medications Generic Name Dose Route Start Last Admin Trade Name Freq PRN Reason Stop Dose Admin Al Hydroxide/Mg Hydroxide 30 0 ml 03/04/20 12:04 03/04/20 12:25 ml/ Lidocaine HCl 15 ml PO 03/04/20 12:05 45 ml ONETIME ONE Administration Dicyclomine HCl 20 mg 03/04/20 12:08 03/04/20 12:24 Bentyl PO 03/04/20 12:09 20 mg ONETIME ONE Administration - Re-Assessments/Exams Free Text/Narrative Re-Assessment/Exam: Patient is a 29-year-old female presenting to the emergency department with complaints of a 2-year history of intermittent epigastric pain, as well as a globus sensation in her esophagus. Esophagram was completed yesterday and found to be normal. She had a recurrence of the epigastric pain that last about 45 minutes prior to coming the ER. She had a large white bowel movement and states shortly thereafter the pain resolved. While I was in the room examining her, the pain did recur. I ordered a GI cocktail as well as some dicyclomine. 03/04/20 12:41 Patient's pain resolved with the GI cocktail and dicyclomine. Discussed with her that I would recommend follow-up with her primary care provider as I feel since this is been going on for 2 years she may be best served by an EGD. She agrees with this plan. She will call to schedule an appointment with her primary care provider. Did recommend that she start taking the Protonix that was prescribed and she also agrees to this. Discharge instructions as documented. Departure - Departure Time of Disposition: 12:42 Disposition: Home, Self-Care 01 Condition: Good Clinical Impression: GERD (gastroesophageal reflux disease) Qualifiers: Esophagitis presence: esophagitis presence not specified Qualified Code(s): K21.9 - Gastro-esophageal reflux disease without esophagitis - Discharge Information *PRESCRIPTION DRUG MONITORING PROGRAM REVIEWED*: No *COPY OF PRESCRIPTION DRUG MONITORING REPORT IN PATIENT FOZIA: No Instructions: Food Choices for Gastroesophageal Reflux Disease, Adult, [id number], Gastroesophageal Reflux Disease, Adult, [id number] Referrals: Giulia Mcmullen MD [Primary Care Provider] - Forms: ED Department Discharge Additional Instructions: You were seen in the emergency department with regard to your recurrent epigastric pain over the last 2 years as well as having the feeling like there is something stuck in your throat. As we discussed, this is likely related to gastroesophageal reflux disease, however you may benefit from a referral to general surgery for an EGD. Recommend that you start taking the Protonix that was prescribed to you. Follow-up with your primary care provider to discuss the option of a possible EGD if she deems it appropriate. Return to the ER as needed. Sepsis Event Note (ED) - Evaluation Sepsis Screening Result: No Definite Risk
== END 2020-03-04 12:56 | disposition home or self-care (01) ==
LOC: JD.ED 10:10
DX: K21.9 Gastro-esophageal reflux disease without esophagitis (principal); Z79.899 Other long term (current) drug therapy
CPT/HCPCS: 99283; A9270

== ENCOUNTER 2020-05-07 00:47 | Emergency (ER) | payer BC ==
[2020-05-07] MEDS ORDERED: Sodium Chloride 0.9% 10 ML Syringe FLUSH PRN (01:46)
[2020-05-07] MEDS ORDERED: Sodium Chloride 0.9% 1,000 ML IV SCH (02:00)
--- NOTE | 2020-05-07 03:24 | EDM.PDOC ---
ED HPI GENERAL MEDICAL PROBLEM - General Chief Complaint: Respiratory Problem Stated Complaint: SOB Time Seen by Provider: 05/07/20 01:33 Source of Information: Reports: Patient History Limitations: Reports: No Limitations - History of Present Illness INITIAL COMMENTS - FREE TEXT/NARRATIVE: The patient presents with shortness of breath, cough and COVID 19. She tells me that she thinks she is going to . She cannot get her air. She started having symptoms of COVID 19 on the 19 of April. She tested positive about a week ago. She says for the past couple of days she feels worse with more shortness of breath. She has no history of asthma or COPD. She does not smoke. She has no history of heart disease or HTN. Onset: Gradual Duration: Week(s): Severity: Moderate Improves with: Reports: None Worsens with: Reports: None Associated Symptoms: Reports: Cough, Shortness of Breath. Denies: Chest Pain, Fever/Chills, Headaches, Nausea/Vomiting - Related Data Allergies Allergy/AdvReac Type Severity Reaction Status Date / Time No Known Allergies Allergy Verified 05/07/20 01:23 Home Meds: Home Meds . 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: Musculoskeletal History: Reports: None Neurological History: Reports: None Psychiatric History: Reports: None Endocrine/Metabolic History: Reports: None Hematologic History: Reports: None Immunologic History: Reports: None Oncologic (Cancer) History: Reports: None Dermatologic History: Reports: None - Infectious Disease History Infectious Disease History: Reports: Novel Coronavirus - Past Surgical History Other Female Surgeries/Procedures: vag delivery August 15 2019 Social & Family History - Family History Family Medical History: No Pertinent Family History - Tobacco Use Tobacco Use Status *Q: Never Tobacco User - Caffeine Use Caffeine Use: Reports: Tea - Recreational Drug Use Recreational Drug Use: No - Living Situation & Occupation Living situation: Reports: , with Family (Mother (temporarily), daughter) 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) ED ROS GENERAL - Review of Systems Review Of Systems: See Below Constitutional: Reports: No Symptoms HEENT: Reports: No Symptoms Respiratory: Reports: Shortness of Breath, Cough Cardiovascular: Reports: No Symptoms Endocrine: Reports: No Symptoms GI/Abdominal: Reports: No Symptoms : Reports: No Symptoms Musculoskeletal: Reports: No Symptoms ED EXAM, GENERAL - Physical Exam Exam: See Below Exam Limited By: No Limitations General Appearance: Alert, No Apparent Distress Ears: Normal External Exam Nose: Normal Inspection Head: Atraumatic, Normocephalic Neck: Normal Inspection Respiratory/Chest: No Respiratory Distress, Lungs Clear, Normal Breath Sounds Cardiovascular: Regular Rate, Rhythm, No Edema, No Murmur GI/Abdominal: Soft, Non-Tender, No Organomegaly, No Mass Back Exam: Normal Inspection Extremities: Normal Inspection Course - Vital Signs Last Recorded V/S: Last Vital Signs Temp 97.6 F 05/07/20 01:24 Pulse 71 05/07/20 03:16 Resp 16 05/07/20 02:43 BP 132/92 H 05/07/20 01:24 Pulse Ox 100 05/07/20 03:16 - Orders/Labs/Meds Orders: Active Orders 24 hr Category Date Time Status Cardiac Monitoring [RC] . DIRECTED Care 05/07/20 01:46 Active Peripheral IV Care [RC] . DIRECTED Care 05/07/20 01:46 Active Chest 1V Frontal [CR] Stat Exams 05/07/20 01:46 Taken Sodium Chloride 0.9% [Normal Saline] 1,000 ml Med 05/07/20 02:00 Active IV .BOLUS Sodium Chloride 0.9% [Saline Flush] Med 05/07/20 01:46 Active 10 ml FLUSH ASDIRECTED PRN Peripheral IV Insertion Adult [OM.PC] Stat Oth 05/07/20 01:46 Ordered Medication Orders Sodium Chloride (Normal Saline) 1,000 mls @ 1,000 mls/hr IV .BOLUS BRYANT Last Admin: 05/07/20 02:40 Dose: 1,000 mls/hr Documented by: BEATRICE Sodium Chloride (Saline Flush) 10 ml FLUSH ASDIRECTED PRN PRN Reason: Keep Vein Open Last Admin: 05/07/20 02:40 Dose: 10 ml Documented by: BEATRICE Labs: Laboratory Tests 05/07/20 05/07/20 05/07/20 Range/Units 02:35 02:35 02:35 WBC 3.54 L (3.98-10.04) K/mm3 RBC 5.02 (3.98-5.22) M/mm3 Hgb 13.4 (11.2-15.7) gm/dl Hct 39.3 (34.1-44.9) % MCV 78.3 L D (79.4-94.8) fl MCH 26.7 (25.6-32.2) pg MCHC 34.1 (32.2-35.5) g/dl RDW Std Deviation 42.8 (36.4-46.3) fL Plt Count 294 (182-369) K/mm3 MPV 10.1 (9.4-12.3) fl Neut % (Auto) 32.5 L (34.0-71.1) % Lymph % (Auto) 59.3 H (19.3-51.7) % [place] % (Auto) 6.8 (4.7-12.5) % Eos % (Auto) 1.1 (0.7-5.8) Baso % (Auto) 0.3 (0.1-1.2) % Neut # (Auto) 1.15 L (1.56-6.13) K/mm3 Lymph # (Auto) 2.10 (1.18-3.74) K/mm3 [place] # (Auto) 0.24 (0.24-0.36) K/mm3 Eos # (Auto) 0.04 (0.04-0.36) K/mm3 Baso # (Auto) 0.01 (0.01-0.08) K/mm3 D-Dimer, Quantitative 0.37 (0.19-0.50) mg/L Sodium 139 (136-145) mEq/L Potassium 3.4 L (3.5-5.1) mEq/L Chloride 103 (98-107) mEq/L Carbon Dioxide 24 (21-32) mEq/L Anion Gap 15.4 H (5-15) BUN 8 (7-18) mg/dL Creatinine 0.9 (0.55-1.02) mg/dL Est Cr Clr Drug Dosing 101.53 mL/min Estimated GFR (MDRD) > 60 (>60) mL/min BUN/Creatinine Ratio 8.9 L (14-18) Glucose 94 (74-106) mg/dL Calcium 9.6 (8.5-10.1) mg/dL Total Bilirubin 0.4 (0.2-1.0) mg/dL AST 14 L (15-37) U/L ALT 25 (14-59) U/L Alkaline Phosphatase 73 (46-116) U/L C-Reactive Protein <0.2 (<1.0) mg/dL Total Protein 7.9 (6.4-8.2) g/dl Albumin 4.3 (3.4-5.0) g/dl Globulin 3.6 gm/dL Albumin/Globulin Ratio 1.2 (1-2) Meds: Medications Generic Name Dose Route Start Last Admin Trade Name Freq PRN Reason Stop Dose Admin Sodium Chloride 1,000 mls @ 1,000 mls/hr 05/07/20 02:00 05/07/20 02:40 Normal Saline IV 1,000 mls/hr .BOLUS BRYANT Administration Sodium Chloride 10 ml 05/07/20 01:46 05/07/20 02:40 Saline Flush FLUSH 10 ml ASDIRECTED PRN Administration Keep Vein Open - Re-Assessments/Exams Free Text/Narrative Re-Assessment/Exam: 05/07/20 03:22 I ordered an IV NS 1L bolus, labs and a CXR. Her CXR looks good. Her WBC was a little low at 3.54. Her D-dimer and CRP are negative. Her K was a little low at 3.4. She feels a little better. Her oxygen saturations mostly are at 100% here. I do not see anything that tells me she is going to . I will discharge her home. Departure - Departure Time of Disposition: 03:25 Disposition: Home, Self-Care 01 Condition: Good Clinical Impression: COVID-19 - Discharge Information *PRESCRIPTION DRUG MONITORING PROGRAM REVIEWED*: Not Applicable *COPY OF PRESCRIPTION DRUG MONITORING REPORT IN PATIENT FOZIA: Not Applicable Referrals: Giulia Mcmullen MD [Primary Care Provider] - 1 Week Additional Instructions: Drink plenty of fluids. Take tylenol or motrin for any fever or chills. Try to get a pulse oximeter at [facility] or the pharmacy. That will tell you your oxygen percentage in your blood. If this goes consistently below 90% please return. Sepsis Event Note (ED) - Evaluation Sepsis Screening Result: No Definite Risk - Focused Exam Vital Signs: Vital Signs Temp Pulse Resp BP Pulse Ox 05/07/20 03:16 71 100 05/07/20 02:43 63 16 100 05/07/20 01:24 97.6 F 90 18 132/92 H 100 - My Orders Last 24 Hours: My Active Orders 05/07/20 01:46 Cardiac Monitoring [RC] . DIRECTED Peripheral IV Care [RC] . DIRECTED Chest 1V Frontal [CR] Stat Sodium Chloride 0.9% [Saline Flush] 10 ml FLUSH ASDIRECTED PRN Peripheral IV Insertion Adult [OM.PC] Stat 05/07/20 02:00 Sodium Chloride 0.9% [Normal Saline] 1,000 ml IV .BOLUS - Assessment/Plan Last 24 Hours: My Active Orders 05/07/20 01:46 Cardiac Monitoring [RC] . DIRECTED Peripheral IV Care [RC] . DIRECTED Chest 1V Frontal [CR] Stat Sodium Chloride 0.9% [Saline Flush] 10 ml FLUSH ASDIRECTED PRN Peripheral IV Insertion Adult [OM.PC] Stat 05/07/20 02:00 Sodium Chloride 0.9% [Normal Saline] 1,000 ml IV .BOLUS
--- NOTE | 2020-05-10 09:57 | CR ---
PROCEDURE INFORMATION: Exam: XR Chest, 1 View Exam date and time: 05/07/2020 2:38 AM Age: 29 years old Clinical indication: Cough and shortness of breath; Patient HX: Covid positive TECHNIQUE: Imaging protocol: XR of the chest Views: 1 view. COMPARISON: RF Esophagus 03/03/2020 10:31 AM FINDINGS: Lungs: Unremarkable. No consolidation. Pleural space: Unremarkable. No pleural effusion. No pneumothorax. Heart/Mediastinum: Unremarkable. No cardiomegaly. Bones/joints: Unremarkable. IMPRESSION: No acute findings. Thank you for allowing us to participate in the care of your patient. Dictated and Authenticated by: Nehemias Castro MD 05/07/2020 4:37 AM Central Time ([place] & [place]) LUZ
== END 2020-05-07 03:53 | disposition home or self-care (01) ==
LOC: JD.ED 00:47
DX: U07.1 COVID-19 (principal)
CPT/HCPCS: 36415; 71045; 80053; 85025; 85379; 86140; 99285; J7030; 99283

== ENCOUNTER 2020-07-19 14:06 | Emergency (ER) | payer BC ==
[2020-07-19] MEDS ORDERED: Albuterol 6.7 GM Inhaler INH ONE (14:40)
--- NOTE | 2020-07-19 14:54 | EDM.PDOC ---
ED HPI GENERAL MEDICAL PROBLEM - General Chief Complaint: General Stated Complaint: SENT OVER FROM COVID CLINIC Time Seen by Provider: 07/19/20 14:11 Source of Information: Reports: Patient, RN Notes Reviewed History Limitations: Reports: No Limitations - History of Present Illness INITIAL COMMENTS - FREE TEXT/NARRATIVE: Patient is a 29-year-old female presenting to the emergency department with complaints of intermittent episodes of shortness of breath. She states that she has had problems with this in the past. After each of her pregnancies she went through periods where she would get intermittently short of breath. In April of last year, she had Covid and states since that time she feels that her intermittent shortness of breath is worsened. She was seen in the Covid clinic prior to coming to the ER. Work-up including blood work and a CT angiogram of her chest was done and was found to be normal. Her D-dimer was normal at 0.43. CT angiogram showed no pulmonary emboli or any acute abnormalities. Patient states that she told the staff that she felt like she was going to quit breathing, therefore a rapid response was called. Nursing staff that responded to the rapid response reports that upon their arrival, her oxygen saturation was 100% on room air and she did not appear to be in respiratory distress. Previously, she was prescribed Flonase for nasal congestion as well as an albuterol inhaler for shortness of breath. She states use the Flonase for 2 weeks which did significantly help her symptoms, however approximate 1 week after stopping the symptoms return. She did not brick picker her albuterol inhaler, therefore she has not been using that. She verbalizes concern of having to use this medication long-term as she does not want to be on a long-term daily medication. She also reports that when diagnosed with Covid, she did lose her taste and smell. Over the last few weeks, she has been intermittently smelling cigarette smoke, however nobody in her house smokes. States that her sense of taste and smell continues to be diminished. Denies any history of asthma. She denies any chest pain. Vital signs on triage were found to be normal. Temperature 98.1, pulse 68, blood pressure 131/79, respiratory rate 16, oxygen 100% on room air. - Related Data Allergies Allergy/AdvReac Type Severity Reaction Status Date / Time No Known Allergies Allergy Verified 07/19/20 14:19 Home Meds: Home Meds . 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: Musculoskeletal History: Reports: None Neurological History: Reports: None Psychiatric History: Reports: None Endocrine/Metabolic History: Reports: None Hematologic History: Reports: None Immunologic History: Reports: None Oncologic (Cancer) History: Reports: None Dermatologic History: Reports: None - Infectious Disease History Infectious Disease History: Reports: Novel Coronavirus - Past Surgical History Head Surgeries/Procedures: Reports: None Other Female Surgeries/Procedures: vag delivery August 15 2019 Social & Family History - Family History Family Medical History: No Pertinent Family History - Tobacco Use Tobacco Use Status *Q: Never Tobacco User - Caffeine Use Caffeine Use: Reports: Tea - Living Situation & Occupation Living situation: Reports: , with Family (Mother (temporarily), daughter) 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 Denies: Fever, Chills, Decreased Appetite HEENT: Reports: Sinus Problem (Congestion). Denies: Ear Pain Respiratory: Reports: Shortness of Breath. Denies: Wheezing, Pleuritic Chest Pain, Cough Cardiovascular: Reports: No Symptoms Endocrine: Reports: No Symptoms GI/Abdominal: Reports: No Symptoms : Reports: No Symptoms Musculoskeletal: Reports: No Symptoms Skin: Reports: No Symptoms Neurological: Reports: No Symptoms Psychiatric: Reports: No Symptoms Hematologic/Lymphatic: Reports: No Symptoms Immunologic: Reports: No Symptoms ED EXAM, GENERAL - Physical Exam Exam: See Below Exam Limited By: No Limitations General Appearance: Alert, WD/WN, No Apparent Distress Respiratory/Chest: No Respiratory Distress, Lungs Clear, Normal Breath Sounds, No Accessory Muscle Use, Chest Non-Tender Cardiovascular: Normal Peripheral Pulses, Regular Rate, Rhythm, No Edema, No Gallop, No JVD, No Murmur, No Rub GI/Abdominal: Normal Bowel Sounds, Soft, Non-Tender, No Organomegaly, No Distention, No Abnormal Bruit, No Mass Neurological: Alert, Oriented, CN II-XII Intact, Normal Cognition, Normal Gait, Normal Reflexes, No Motor/Sensory Deficits Psychiatric: Normal Affect, Normal Mood Skin Exam: Warm, Dry, Intact, Normal Color, No Rash Course - Vital Signs Last Recorded V/S: Last Vital Signs Temp 98.1 F 07/19/20 14:16 Pulse 68 07/19/20 14:16 Resp 16 07/19/20 14:16 BP 131/79 07/19/20 14:16 Pulse Ox 100 07/19/20 14:16 - Orders/Labs/Meds Orders: Active Orders 24 hr Category Date Time Status RT Post Treatment Assessment [RC] Click to Edit Care 07/19/20 14:41 Active RT Pre-Treatment Assessment [RC] Click to Edit Care 07/19/20 14:41 Active Meds: Medications Discontinued Medications Generic Name Dose Route Start Last Admin Trade Name Perlita PRN Reason Stop Dose Admin Albuterol 0 gm 07/19/20 14:40 Proventil Hfa INH 07/19/20 14:41 ONETIME ONE - Re-Assessments/Exams Free Text/Narrative Re-Assessment/Exam: Patient is a 29-year-old female presenting to the emergency department with complaints of a long history of intermittent shortness of breath, with symptoms worsening since her diagnosis of Covid in April. She was seen at the Covid clinic prior to coming here. Work-up included blood work and a CT angiogram of her chest. Results of her work-up were found to be normal. She does not have a pulmonary embolus. Report is that patient complained of being short of breath and stated "I feel like I am in a stop breathing ". Rapid response was called. Nursing staff reports that upon their arrival, she did not appear to be any respiratory distress and her oxygen saturation was 100% on room air. On exam, patient's lungs are clear to auscultation. She does occasionally take a deep breath, however her oxygen saturations maintained in the upper 90s to 100%. Discussed with patient that anxiety may be a component of this, however given her continued decreased taste and smell with intermittent smell of cigarette smoke and intermittent shortness of breath, I feel that she is likely experiencing long-haul Covid symptoms. I did review the results of each of the test that were completed in the Covid clinic and the significance of them. Provided reassurance. Recommend that she resume using the Flonase nasal spray f or the next 2 weeks. I will give her an albuterol inhaler with spacer here in the emergency department and send it home with her. I would like her to follow- up with her primary care provider in 2 weeks time for reevaluation. She is in agreement with this plan. Discussed return precautions. Discharge instructions as documented. Departure - Departure Time of Disposition: 15:02 Disposition: Home, Self-Care 01 Condition: Good Clinical Impression: Post-COVID syndrome - Discharge Information *PRESCRIPTION DRUG MONITORING PROGRAM REVIEWED*: No *COPY OF PRESCRIPTION DRUG MONITORING REPORT IN PATIENT FOZIA: No Referrals: Giulia Mcmullen MD [Physician] - Additional Instructions: You were seen in the emergency department today for continued episodes of shortness of breath after your Covid diagnosis in April. Prior to coming to the ER, blood work and a CT angiogram of your chest were completed. The results of these tests were found to be normal. As we discussed, I feel that your continued decreased taste and smell as well as intermittent smell of cigarette smoke and shortness of breath is related to long-haul Covid. The symptoms can take a number of months to resolve after your diagnosis of COVID-19. Recommend that you resume the Flonase nasal spray 2 puffs in each nostril daily for at least the next 2 weeks. You have been provided with an albuterol inhaler. Take 2 puffs with the spacer every 4 hours as needed for shortness of breath. Recommend that you call to schedule follow-up with your primary care provider, Dr. Mcmullen, for 2 weeks from today. If you experience any new or worsening symptoms of concern, please not hesitate to return to the emergency department for reevaluation. Sepsis Event Note (ED) - Evaluation Sepsis Screening Result: No Definite Risk - Focused Exam Vital Signs: Vital Signs Temp Pulse Resp BP Pulse Ox 07/19/20 14:16 98.1 F 68 16 131/79 100 - My Orders Last 24 Hours: My Active Orders 07/19/20 14:41 RT Post Treatment Assessment [RC] Click to Edit RT Pre-Treatment Assessment [RC] Click to Edit - Assessment/Plan Last 24 Hours: My Active Orders 07/19/20 14:41 RT Post Treatment Assessment [RC] Click to Edit RT Pre-Treatment Assessment [RC] Click to Edit
== END 2020-07-19 15:15 | disposition home or self-care (01) ==
LOC: JD.ED 14:06
DX: R06.02 Shortness of breath (principal); Z86.16 Personal history of COVID-19
CPT/HCPCS: 94640; 99284; A9270; 99283

== ENCOUNTER 2020-11-12 07:07 | Day surgery (SDC) | payer BC ==
[~2020-11-12 07:07] MED LIST changes: -Bupivacaine 0.25% 10 ML SDV ONE; +Lactated Ringers 1,000 ML IV SCH; +Lidocaine 1%/Sod Bicarbonate in NS 8.4% 1 ML Syringe IDERM PRN; +Sodium Chloride 0.9% 10 ML Syringe FLUSH PRN
--- NOTE | 2020-11-12 07:21 | PCM.PREANE ---
Preanesthetic Assessment - Anesthesia/Transfusion/Family Hx Anesthesia History: No Prior Anesthesia Family History of Anesthesia Reaction: No Transfusion History: No Prior Transfusion(s) Intubation History: Unknown - Review of Systems General: No Symptoms Pulmonary: Shortness of Breath (pt states get SOB with eating after eating ) Cardiovascular: No Symptoms Gastrointestinal: No Symptoms Neurological: No Symptoms Other: Reports: None - Physical Assessment NPO Status Date: 11/11/20 NPO Status Time: 21:00 ASA Class: 2 Airway Class: Mallampati = 2 Dentition: Reports: Normal Dentition Thyro-Mental Finger Breadths: 3 Mouth Opening Finger Breadths: 3 ROM/Head Extension: Full Lungs: Clear to Auscultation, Normal Respiratory Effort - Allergies Allergies/Adverse Reactions: Allergies Allergy/AdvReac Type Severity Reaction Status Date / Time No Known Allergies Allergy Verified 07/19/20 14:19 - Acknowledgements Anesthesia Type Planned: MAC Pt an Appropriate Candidate for the Planned Anesthesia: Yes Alternatives and Risks of Anesthesia Discussed w Pt/Guardian: Yes Pt/Guardian Understands and Agrees with Anesthesia Plan: Yes PreAnesthesia Questionnaire - Past Health History Medical/Surgical History: Denies Medical/Surgical History HEENT History: Reports: None Cardiovascular History: Reports: None Respiratory History: Reports: SOB Gastrointestinal History: Reports: GERD Genitourinary History: Reports: None WATER SANDER History: Reports: , Other (See Below) (LMP 11-04-20) Musculoskeletal History: Reports: None Neurological History: Reports: None Psychiatric History: Reports: Other (See Below) (panic attacks) Endocrine/Metabolic History: Reports: None Hematologic History: Reports: None Immunologic History: Reports: None Oncologic (Cancer) History: Reports: None Dermatologic History: Reports: None - Infectious Disease History Infectious Disease History: Reports: Novel Coronavirus - Past Surgical History Head Surgeries/Procedures: Reports: None Other Female Surgeries/Procedures: vag delivery August 15 2019 - SUBSTANCE USE Tobacco Use Status *Q: Never Tobacco User - HOME MEDS Home Medications: Home Meds . [No Known Home Meds] 05/07/20 [History] - CURRENT (IN HOUSE) MEDS Current Meds: Current Medications Lactated Ringer's (Ringers, Lactated) 1,000 mls @ 125 mls/hr IV ASDIRECTED BRYANT Lidocaine/Sodium Bicarbonate (Lidocaine 1%/Sod Bicarbonate In Ns 8.4% 1 Ml Syringe) 0.25 ml IDERM ONETIME PRN PRN Reason: Prior to IV Start Sodium Chloride (Sodium Chloride 0.9% 10 Ml Syringe) 10 ml FLUSH ASDIRECTED PRN PRN Reason: Keep Vein Open
[2020-11-12] MEDS ORDERED: Lidocaine 1% 4 ML ONE (07:31)
[2020-11-12] MEDS ORDERED: Propofol 200 MG/20 ML SDV ONE (07:31)
[2020-11-12] MEDS ORDERED: fentaNYL 100 MCG/2 ML SDV ONE (07:32)
--- NOTE | 2020-11-12 07:43 | PCM.PRNOTE ---
- Free Text/Narrative Note: Date: 11/12/2020 Procedure: diagnostic esophagogastroduodenoscopy Indication: medically refractory dysphagia, heartburn, with normal esophagram Endoscopist: Wayne Joy MD Findings: sliding hiatal hernia with apparent gross inflammatory changes of the distal esophagus. Detailed Report: The patient was taken to the endoscopy suite and placed in left lateral decubitus position. Time out was performed and monitored anesthesia care initiated. A bite block was placed. The endoscope was inserted and advanced to the duodenum with ease. The duodenum and stomach looked normal. On retroflexion, a sliding hiatal hernia was noted. The Z line was well defined and there appeared to be gross mild inflammatory changes of the distal esophagus. Mucosal biopsies were taken from the duodenum, antrum and distal esophagus with cold forceps. Air was suctioned from the stomach prior to withdrawal of the scope. The patient tolerated the procedure well.
--- NOTE | 2020-11-12 08:14 | PCM48HPAN ---
Post Anesthesia Note - EVALUATION WITHIN 48HRS OF ANESTHETIC Vital Signs in Normal Range: Yes Patient Participated in Evaluation: Yes Respiratory Function Stable: Yes Airway Patent: Yes Cardiovascular Function Stable: Yes Hydration Status Stable: Yes Pain Control Satisfactory: Yes Nausea and Vomiting Control Satisfactory: Yes Mental Status Recovered: Yes
== END 2020-11-12 09:27 | disposition home or self-care (01) ==
LOC: JD.SDS 07:07
PROVIDERS: ATTEND Surgery
DX: K29.50 Unspecified chronic gastritis without bleeding (principal); B96.81 Helicobacter pylori [H. pylori] as the cause of diseases classified elsewhere; R13.10 Dysphagia, unspecified; K44.9 Diaphragmatic hernia without obstruction or gangrene; K21.9 Gastro-esophageal reflux disease without esophagitis; E61.1 Iron deficiency; E55.9 Vitamin D deficiency, unspecified; Z88.8 Allergy status to other drugs, medicaments and biological substances; Z86.16 Personal history of COVID-19; Z79.899 Other long term (current) drug therapy
CPT/HCPCS: 43239; 81025; J2704; J3010; J7120; 00731